=== PATIENT | male | born 1995 | race Caucasian/White ===

== ENCOUNTER → 2020-04-09 09:57 | Outpatient (CLI) | payer OTHER, SELFPAY ==
--- NOTE | 2020-04-09 10:07 | XR_ITS ---
PROCEDURE: XR LUMBAR SPINE MIN 4V CLINICAL INDICATION: LUMBAGO W/ SCIATICA COMPARISON: No exams were available for comparison FINDINGS: There is normal alignment. No fracture or dislocation is evident. No lytic or blastic change. There is decrease in the L5-S1 disc space. There is partial lumbarization of S1. Spina bifida occulta also noted at S1. IMPRESSION: Degenerative disc disease L5-S1 Dictated by: Goran Marino MD 04/09/2020 15:26 Electronically signed by Goran Marino MD in [place] 04/09/2020 15:26
== END ==
PROVIDERS: PCP Family Medicine; Visit Provider Family Medicine
DX: M54.42 Lumbago with sciatica, left side (principal); M54.41 Lumbago with sciatica, right side
CPT/HCPCS: 72110

== ENCOUNTER → 2020-04-16 13:26 | Outpatient (CLI) | payer OTHER, SELFPAY ==
--- NOTE | 2020-04-16 13:36 | MR_ITS ---
PROCEDURE: MR LUMBAR SPINE WO CON CLINICAL INDICATION: DDD AT L5-S1 BACK PAIN XYRS. BILATERAL LEG NUMBNESS. PRIOR X-RAY 04/09/2020 COMPARISON: XR LUMBAR SPINE MIN 4V from 04/09/2020 TECHNIQUE: Standard multiplanar multiecho sequences are performed without contrast. 3-D MIP and myelographic images are also rendered and reviewed FINDINGS: There is normal alignment. There is partial lumbarization of the L5 vertebral body. The spinal cord ends at the T11-T12 level. L1-L2: Mild facet ligamentum hypertrophy. L2-L3: Mild facet ligamentum hypertrophy. L3-L4: Mild facet ligamentum hypertrophy. L4-5: Degenerative disc disease with asymmetric bulging disc eccentric to the right with resultant right lateral recess and foraminal narrowing. The disc does abut the anterior aspect of the right L5 nerve root with moderate to severe right-sided foraminal narrowing. L5-S1: Unremarkable. IMPRESSION: 1. Degenerative disc disease at L4-5 with asymmetric bulging disc eccentric to the right with resultant right lateral recess and foraminal narrowing. The disc does abut the anterior aspect of the right L5 nerve root with moderate to severe right-sided foraminal narrowing. There is minimal anterolisthesis of L4 on L5 of 3 mm 2. 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 Please keep this in mind if there is any intervention contemplated and correlate appropriately Dictated by: Goran Marino MD 04/17/2020 11:48 Electronically signed by Goran Marino MD in [place] 04/17/2020 11:48
== END ==
PROVIDERS: PCP Family Medicine; Visit Provider Family Medicine
DX: M51.36 Other intervertebral disc degeneration, lumbar region (principal)
CPT/HCPCS: 72148; 76376

== ENCOUNTER 2020-06-05 11:00 | Outpatient (RCR) | payer OTHER, SELFPAY | END 2020-06-05 12:00 | disposition home or self-care (01) | LOC: PT 11:00 | PROVIDERS: PCP Family Medicine; Visit Provider Family Medicine | DX: M54.41 Lumbago with sciatica, right side; M51.36 Other intervertebral disc degeneration, lumbar region | CPT/HCPCS: 20561; 97010; 97014; 97033; 97035; 97110; 97140; 97163; 97164; G0283 ==

== ENCOUNTER → 2020-07-14 08:37 | Outpatient (CLI) | payer OTHER, SELFPAY | PROVIDERS: Visit Provider Anesthesiology | DX: Z03.818 Encounter for observation for suspected exposure to other biological agents ruled out (principal) | CPT/HCPCS: U0003 ==

== ENCOUNTER → 2020-12-22 17:29 | Outpatient (CLI) | payer OTHER, SELFPAY | PROVIDERS: Visit Provider Anesthesiology | DX: Z01.818 Encounter for other preprocedural examination (principal); Z20.822 Contact with and (suspected) exposure to COVID-19 | CPT/HCPCS: U0003 ==

== ENCOUNTER 2021-03-16 17:37 | Emergency (ER) | payer OTHER, SELFPAY ==
--- NOTE | 2021-03-16 17:33 | ECG_ITS ---
APPROVED REPORT Exam: Resting ECG HR:101 bpm ECG Measurements Heart Rate 101 AXES DC 160 P 39 QRSd 104 QRS 33 QT 336 T 29 QTc 435 Conclusion Sinus tachycardia Otherwise normal ECG Electronically signed by : Jann Price, 03/17/2021 08:17:34
[2021-03-16 17:37] VITALS: BP 166/103; PULSE 98; RESP 18; TEMP 37.4; O2SAT 100; BMI 45.4
--- NOTE | 2021-03-16 17:39 | XR_ITS ---
PROCEDURE INFORMATION: Exam: XR Chest Exam date and time: 03/16/2021 5:39 PM Age: 25 years old Clinical indication: Chest pressure; Patient HX: Chest pain---. Obesity---. Patient vapes; Additional info: Chest fluttering TECHNIQUE: Imaging protocol: XR of the chest. Views: 2 views. COMPARISON: No relevant prior studies available. FINDINGS: Lungs: Unremarkable. No consolidation. Pleural spaces: Unremarkable. No pleural effusion. No pneumothorax. Heart/Mediastinum: Unremarkable. No cardiomegaly. Bones/joints: Unremarkable. IMPRESSION: No acute findings.
[2021-03-16 18:11] LABS: Basophils # 0.1 K/mm3 (0-0.2); Basophils % 1.1 % (0.1-2.0); Eosinophils # 0.2 K/mm3 (0.0-0.4); Eosinophils % 1.5 % (0.1-12.0); Hemoglobin 15.4 g/dL (14.1-18.0); Lymphocytes # 3.1 K/mm3 (0.7-4.5); Lymphocytes % 28.4 % (10-50); Mean Corpuscular Hemoglobin 28.9 pg (27.0-31.2); Mean Corpuscular Volume 82.7 fl (80-94); Mean Platelet Volume 7.8 fl (7.4-10.4); Monocytes # 0.5 K/mm3 (0.1-1.0); Monocytes % 4.6 % (1.7-9.3); Neutrophils % 64.4 % (37.0-80.0); Platelet Count 210 K/mm3 (142-424); Red Blood Count 5.32 M/mm3 (4.60-6.20); Red Cell Distribution Width 13.9 % (11.5-17.5); White Blood Count 10.8 K/mm3 (4.8-10.8)
[2021-03-16 18:30] LABS: Anion Gap 9.5 mEq/L (5-15); Blood Urea Nitrogen 14 mg/dl (9-20); Calcium 8.9 mg/dl (8.4-10.2); Carbon Dioxide 29 mmol/L (22.0-30.0); Chloride 103 mmol/L (98-107); Creatinine Clearance Estimated 176 mL/min (50-200); Estimated Glomerular Filt Rate 136 ml/min (>60); GFR (African American) 165 ML/MIN (>60); Glucose 91 mg/dl (74-100); Potassium 4.5 mmoL/L (3.5-5.1); Sodium 137 mmol/L (136-145)
--- NOTE | 2021-03-16 18:42 | HMH.EDCP ---
ED Disposition Clinical Impression: Nonspecific chest pain Disposition: Home, Self-Care Condition on Discharge: Good Instructions: DI for Palpitations Referrals: Isrrael Musa MD [Primary Care Provider] - Anthony Dial MD [Staff Physician] - - Critical Care Critical Care Time: No Attestation: On 03/16/21, the high probability of a clinically significant, sudden or life threatening deterioration of the following system(s) required my full and direct attention, intervention and personal management. The time I documented below is in addition to time spent performing reported procedures but includes the following listed in this critical care notation. Medical Decision Making - Medical Records Medical records reviewed: Yes: I reviewed the patient's medical records. - Ray Inquiry Pt receiving controlled substance: No Vital Signs: 03/16/21 17:37 Temperature 99.4 F Temperature Source Oral Pulse Rate [Left Radial] 98 H Respiratory Rate 18 Blood Pressure [Right Arm] 166/103 H Blood Pressure Mean [Right Arm] 124 Blood Pressure Source [Right Arm] Automatic Cuff Blood Pressure Position [Right Arm] Sitting 02 Sat by Pulse Oximetry 100 Oxygen Delivery Method Room Air - Lab Data Lab Results 03/16/21 18:03: WBC 10.8, RBC 5.32, Hgb 15.4, Hct 44.0, MCV 82.7, MCH 28.9, MCHC 35.0, RDW 13.9, Plt Count 210, MPV 7.8, Neut % (Auto) 64.4, Lymph % (Auto) 28.4, [place] % (Auto) 4.6, Eos % (Auto) 1.5, Baso % (Auto) 1.1, Neut # (Auto) 7.0, Lymph # (Auto) 3.1, [place] # (Auto) 0.5, Eos # (Auto) 0.2, Baso # (Auto) 0.1 03/16/21 18:03: Sodium 137, Potassium 4.5, Chloride 103, Carbon Dioxide 29, Anion Gap 9.5, BUN 14, Creatinine 0.70, Estimated Creat Clear 176, Estimated GFR 136, Est GFR ( Amer) 165, Glucose 91, Calcium 8.9, Troponin I < 0.01 Result diagrams: 03/16/21 18:03 03/16/21 18:03 Orders (Tests/Meds): ED MEDICATIONS Generic Name Dose Route Start Last Admin Trade Name Freq PRN Reason Stop Dose Admin Sodium Chloride 1,000 mls @ 999 mls/hr 03/16/21 18:00 03/16/21 18:07 Sod Chlor 0.9% 1000ml Bag IV 03/16/21 19:00 999 mls/hr .Q1H1M LEE ANN Administration Discontinued Medications Generic Name Dose Route Start Last Admin Trade Name [place] PRN Reason Stop Dose Admin Ketorolac Tromethamine 30 mg 03/16/21 17:55 03/16/21 18:07 Ketorolac 30mg/Ml Vial IV 03/16/21 17:56 30 mg ONCE ONE Administration ORDERS Category Date Time Status Troponin I Q3H Lab 03/16/21 20:45 Ordered Troponin I Q3H Lab 03/16/21 23:45 Ordered - Radiology Data #1 Image(s): Chest Image Reviewed: Yes I reviewed the patient's radiology results, Yes I reviewed the patient's radiology image Preliminary Findings: Normal/NAD, No Fracture Seen - ECG Data Tracing #1 Tachycardic rate of 101 bpm, NV interval 160 ms, normal QTC. Sinus tachycardia with no ST changes. ECG initial impression date: 03/16/21 ECG initial impression time: 17:33 - Reevaluation(s) Time: 19:07 Reevaluation #1: On reevaluation, patient is pain-free. He is remained hemodynamically stable. No evidence of dysrhythmia. Patient will be given cardiology follow-up. If he continues to have symptoms I do believe he will benefit from Holter monitor. Patient given strict return precautions. Verbalized understanding. - MAINOR Score for Non-Stemi Age of Patient: <30 years old Heart Rate: 90-109 bpm Systolic Blood Pressure: 160-199 mmHg Serum Creatinine: <0.40 mg/dl CHF [place] Class: I-No CHF Other Risk Factors: None Non-Stemi Risk Score: 26 Risk Stratification: 1-108 = Low Risk Medical Decision Narrative: 25-year-old male presented to the emergency department with some chest discomfort for the last 4 days. Symptoms describing are atypical for ACS. Patient is relatively low risk based on heart score. Work-up initiated. Chest Pain HPI - General Chief Complaint: Chest Pain Stated Complaint: Chest tightness Time Seen by Provider
[2021-03-16 18:48] LABS: Troponin I < 0.01 ng/ml (0.00-0.034)
[2021-03-16 19:42] VITALS: BP 142/84; PULSE 92; RESP 16; TEMP 37.6; O2SAT 100
== END 2021-03-16 19:30 | disposition home or self-care (01) ==
PROVIDERS: Emergency Provider Emergency Medicine; PCP Family Medicine
DX: R07.89 Other chest pain (principal)
CPT/HCPCS: 71046; 80048; 84484; 85025; 93005; 96365; 96375; 99282

== ENCOUNTER 2021-07-05 15:24 | Emergency (ER) | payer OTHER, SELFPAY ==
[2021-07-05 16:00] VITALS: BP 149/96; PULSE 91; RESP 19; TEMP 37.1; O2SAT 98; BMI 43.4
--- NOTE | 2021-07-05 16:37 | HMH.EDUTC ---
[facility] [place] Clinical Impression: URI (upper respiratory infection) Qualifiers: URI type: unspecified URI Qualified Code(s): J06.9 - Acute upper respiratory infection, unspecified Disposition: Home, Self-Care Condition on Discharge: Good Instructions: Sore Throat, DI for Nasal Congestion, DI for COVID-19 (Suspected or Confirmed ), Preventing the Spread of Coronavirus Discharge Instructions Additional Instructions: *Monitor Temp, Over the counter Motrin or Tylenol as directed/as needed Tylenol every 4 hours and Motrin every 6 hours (as long as your family doctor has told you that you can take it) for fever or pain. and straight to ER if unable to lower temp less than 101.0 after medication given *Warm salt water gargles may help to soothe the throat *Throat Lozenges *Warm fluids like tea with honey may help to soothe the throat *Sleep elevated *Humidifier/Vaporizer Your throat swab was sent for culture. Those results are typically sent to your primary care. Be sure to follow up in 2-3 days with your family doctor/primary care physician if no improvement so they can review those result and treat if necessary. If you don?t have a primary care doctor, I recommend you get one but in the mean time, you will have to return to a walk in clinic Follow up IMMEDIATELY for new or worsening symptoms or no Noticeable improvement over the next 48-72 hours. 911 for difficulty breathing or swallowing You were tested for today for COVID19 your test result should be back in the next 24-48 hours, you was given Handout to [facility] portal to check your results if you have issues logging on you may call the [facility] for your Results You was given a handout with instructions for Self Quarantine and Self isolation for while you wait on test results and what to do if they are positive If you are positive the Health Dept will be contacting you also Make sure to take your Vitamins Vit. C Vit D and Zinc if you can take them Referrals: Isrrael Musa MD [Primary Care Provider] - As needed Forms: Work/School Release Time of Disposition: 16:44 Medical Decision Making - Ray Inquiry Pt receiving controlled substance: No Ray was queried for this patient: No Vital Signs: 07/05/21 16:00 Temperature 98.8 F Temperature Source Oral Pulse Rate [Right Brachial] 91 H Respiratory Rate 19 Blood Pressure [Right Arm] 149/96 H Blood Pressure Mean [Right Arm] 113 Blood Pressure Source [Right Arm] Automatic Cuff Blood Pressure Position [Right Arm] Sitting 02 Sat by Pulse Oximetry 98 Oxygen Delivery Method Room Air - Lab Data Lab results reviewed: Yes: I reviewed the patient's lab results. Lab Results 07/05/21 16:05: Strep Scn Rapid Clinic Negative Orders (Tests/Meds): ORDERS Category Date Time Status Covid-19 Nasal PCR ([facility]) Routine Lab 07/05/21 16:10 Received Strep Screen Confirmation Stat Micro 07/05/21 16:05 Received [facility] UTC HPI - General Stated complaint: covid test,sore throat,cough<ZAMORA,long,msucle aimee Time Seen by Provider: 07/05/21 16:37 Mode of Arrival: Ambulatory Source of Information: Patient Limitations: No Limitations Description of Symptoms (Recalled from Triage Doc. by RN): PATIENT C/O SORE THROAT, COUGH, CONGESTION AND HEADACHE X 3 DAYS HEENT Symptoms (Recalled from RN notes): Yes Resp Symptoms (Recalled from RN notes): Yes Skin Symptoms (Recalled from RN notes): No MS Symptoms (Recalled from RN notes): No Functional Status (Recalled from RN notes): WNL - History of Present Illness Provider Complaint: Patient states that he has not felt well the last few days States that he has been having sore throat body aches, chills, nasal congestion and headache State that he was around someone at work that was positive for COVID States that today he was still feeling bad so he came in to get tested for strep and COVID - Related Data Home Medications Medication Instructions Recorded Confirmed Diclofenac Sodium [Diclofena
[2021-07-05 16:40] VITALS: BP 149/96; PULSE 91; RESP 19; TEMP 37.1; O2SAT 98
[2021-07-05 16:43] LABS: UTC Strep Screen (Rapid) Negative (Negative)
== END 2021-07-05 16:45 | disposition home or self-care (01) ==
PROVIDERS: Emergency Provider Nurse Practitioner; PCP Family Medicine
DX: J06.9 Acute upper respiratory infection, unspecified (principal); Z20.822 Contact with and (suspected) exposure to COVID-19
CPT/HCPCS: 87880; 99203; C9803; G0463; U0003; U0005

== ENCOUNTER → 2021-09-02 11:09 | Outpatient (CLI) | payer OTHER, SELFPAY | PROVIDERS: PCP Family Medicine; Visit Provider Family Medicine | DX: G47.30 Sleep apnea, unspecified (principal); R40.0 Somnolence; R06.83 Snoring; E66.9 Obesity, unspecified | CPT/HCPCS: 95806 ==

== ENCOUNTER 2021-10-08 18:15 | Emergency (ER) | payer OTHER, SELFPAY ==
[2021-10-08 18:15] VITALS: BP 163/98; PULSE 106; RESP 19; O2SAT 96; BMI 40.6
[2021-10-08 18:16] VITALS: BMI 40.6
--- NOTE | 2021-10-08 18:16 | XR_ITS ---
PROCEDURE INFORMATION: Exam: XR Chest Exam date and time: 10/08/2021 6:16 PM Age: 25 years old Clinical indication: Pain; Chest pressure; Additional info: Chest pain TECHNIQUE: Imaging protocol: XR of the chest. Views: 2 views. COMPARISON: CR XR CHEST 2V 03/16/2021 5:56 PM FINDINGS: Lungs: Unremarkable. No consolidation. Pleural spaces: Unremarkable. No pleural effusion. No pneumothorax. Heart/Mediastinum: Unremarkable. No cardiomegaly. Bones/joints: Unremarkable. IMPRESSION: No acute findings.
--- NOTE | 2021-10-08 18:16 | ECG_ITS ---
APPROVED REPORT Exam: Resting ECG HR:102 bpm ECG Measurements Heart Rate 102 AXES FL 162 P 32 QRSd 104 QRS 14 QT 340 T 9 QTc 443 Conclusion Sinus tachycardia Cannot rule out Anterior infarct, age undetermined Abnormal ECG Electronically signed by : Jann Price MD 10/09/2021 14:25:54
--- NOTE | 2021-10-08 18:25 | PC.NURSE ---
Pt is going to chest xray
[2021-10-08 18:36] LABS: Chloride 98 mmol/L (98-107); Potassium 3.8 mmoL/L (3.5-5.1); Sodium 135 mmol/L (136-145)
[2021-10-08 18:39] LABS: Alanine Aminotransferase 47 U/L (12-78); Albumin Level 4.5 g/dl (3.5-5.0); Albumin/Globulin Ratio 1.3 (1.1-1.8); Alkaline Phosphatase 40 U/L (38-126); Anion Gap 11.8 mEq/L (5-15); Aspartate Amino Transferase 39 U/L (17-59); Bilirubin,Total 0.5 mg/dl (0.2-1.3); Blood Urea Nitrogen 15 mg/dl (9-20); Carbon Dioxide 29 mmol/L (22.0-30.0); Creatinine Clearance Estimated 308 mL/min (50-200); Estimated Glomerular Filt Rate 136 ml/min (>60); GFR (African American) 165 ML/MIN (>60); Globulin 3.5 g/dL (1.3-3.2)
[2021-10-08 18:40] LABS: Calcium 9.3 mg/dl (8.4-10.2); Glucose 130 mg/dl (74-100)
[2021-10-08 18:41] LABS: Basophils # 0.3 K/mm3 (0-0.2); Basophils % 2.1 % (0.1-2.0); Eosinophils # 0.2 K/mm3 (0.0-0.4); Eosinophils % 1.7 % (0.1-12.0); Hematocrit 48.1 % (42.0-52.0); Hemoglobin 15.6 g/dL (14.1-18.0); Mean Corpuscular HGB Conc 32.4 g/dL (31.8-35.4); Mean Corpuscular Hemoglobin 27.5 pg (27.0-31.2); Mean Platelet Volume 8.3 fl (7.4-10.4); Monocytes # 0.6 K/mm3 (0.1-1.0); Monocytes % 4.9 % (1.7-9.3); Neutrophils # 7.9 K/mm3 (1.8-7.8); Neutrophils % 66.5 % (37.0-80.0); Platelet Count 268 K/mm3 (142-424); Red Blood Count 5.65 M/mm3 (4.60-6.20); Red Cell Distribution Width 14.6 % (11.5-17.5); White Blood Count 11.9 K/mm3 (4.8-10.8)
[2021-10-08 18:51] LABS: Troponin I < 0.01 ng/ml (0.00-0.034)
--- NOTE | 2021-10-08 19:04 | HMH.EDCP ---
ED Disposition Clinical Impression: Chest pain Qualifiers: Chest pain type: other chest pain Qualified Code(s): R07.89 - Other chest pain Hypertension Qualifiers: Hypertension type: primary hypertension Qualified Code(s): I10 - Essential (primary) hypertension Disposition: Home, Self-Care Condition on Discharge: Good Instructions: DI for Atypical Chest Pain Prescriptions: Famotidine [Pepcid 20mg Tablet] 20 mg PO DAILY #15 tab Transmission Status: Pending to [facility] Referrals: Jann Craig MD [Primary Care Provider] - - Critical Care Critical Care Time: No Attestation: On 10/08/21, the high probability of a clinically significant, sudden or life threatening deterioration of the following system(s) required my full and direct attention, intervention and personal management. The time I documented below is in addition to time spent performing reported procedures but includes the following listed in this critical care notation. Medical Decision Making - Medical Records Medical records reviewed: Yes: I reviewed the patient's medical records. - Ray Inquiry Pt receiving controlled substance: No Vital Signs: 10/08/21 18:15 Pulse Rate [Right Radial] 106 H Respiratory Rate 19 Blood Pressure [Right Arm] 163/98 H Blood Pressure Mean [Right Arm] 119 Blood Pressure Source [Right Arm] Automatic Cuff Blood Pressure Position [Right Arm] Supine 02 Sat by Pulse Oximetry 96 Oxygen Delivery Method Room Air - Lab Data Lab Results 10/08/21 18:20: WBC 11.9 H, RBC 5.65, Hgb 15.6, Hct 48.1, MCV 85.0, MCH 27.5, MCHC 32.4, RDW 14.6, Plt Count 268, MPV 8.3, Neut % (Auto) 66.5, Lymph % (Auto) 25.0, [place] % (Auto) 4.9, Eos % (Auto) 1.7, Baso % (Auto) 2.1 H, Neut # (Auto) 7.9 H, Lymph # (Auto) 3.0, [place] # (Auto) 0.6, Eos # (Auto) 0.2, Baso # (Auto) 0.3 H 10/08/21 18:20: Sodium 135 L, Potassium 3.8, Chloride 98, Carbon Dioxide 29, Anion Gap 11.8, BUN 15, Creatinine 0.70, Estimated Creat Clear 308 H, Estimated GFR 136, Est GFR ( Amer) 165, Glucose 130 H, Calcium 9.3, Total Bilirubin 0.5, AST 39, ALT 47, Alkaline Phosphatase 40, Troponin I < 0.01, Total Protein 8.0, Albumin 4.5, Globulin 3.5 H, Albumin/Globulin Ratio 1.3 Result diagrams: 10/08/21 18:20 10/08/21 18:20 Orders (Tests/Meds): ED MEDICATIONS Generic Name Dose Route Start Last Admin Trade Name Freq PRN Reason Stop Dose Admin Sodium Chloride 8 ml 10/08/21 19:04 Sodium Chloride 0.9% 10ml Vial IV 11/07/21 19:03 NEEDED PRN dilute pepcid Discontinued Medications Generic Name Dose Route Start Last Admin Trade Name Freq PRN Reason Stop Dose Admin Aspirin 324 mg 10/08/21 18:17 10/08/21 18:19 Aspirin 81mg Chewable Tablet PO 10/08/21 18:18 324 mg ONCE ONE Administration Belladonna Alkaloids 60 ml 10/08/21 19:04 10/08/21 19:13 Gi Cocktail 60ml Udc PO 10/08/21 19:05 60 ml ONCE ONE Administration Famotidine 20 mg 10/08/21 19:04 10/08/21 19:13 Famotidine 20mg/2ml Vial IV 10/08/21 19:05 20 mg ONCE ONE Administration Hydralazine HCl 10 mg 10/08/21 19:08 10/08/21 19:15 Hydralazine 20mg/Ml Vial IV 10/08/21 19:09 10 mg ONCE ONE Administration ORDERS Category Date Time Status Troponin I Q3H Lab 10/08/21 21:30 Ordered Troponin I Q3H Lab 10/09/21 00:30 Ordered - Radiology Data #1 Image(s): Chest Image Reviewed: Yes I reviewed the patient's radiology results, Yes I reviewed the patient's radiology image, Yes I have reviewed radiologist's interpretation Preliminary Findings: Normal/NAD - ECG Data Tracing #1 I reviewed this ECG and interpreted as documented below: Tachycardic rate of 102 bpm, normal IA interval, normal QTC. Sinus tachycardia with nonspecific changes. ECG initial impression date: 10/08/21 ECG initial impression time: 18:16 - Reevaluation(s) Time: 19:28 Reevaluation #1: On reevaluation, the patient is feeling much better. Pain is i
[2021-10-08 19:36] VITALS: BP 156/82; PULSE 102; RESP 18; TEMP 36.8; O2SAT 98
== END 2021-10-08 19:41 | disposition home or self-care (01) ==
PROVIDERS: Emergency Provider Emergency Medicine; PCP Family Medicine
DX: R07.89 Other chest pain (principal); I10 Essential (primary) hypertension; F41.8 Other specified anxiety disorders
CPT/HCPCS: 71046; 80053; 84484; 85025; 93005; 96374; 96375; 99283

== ENCOUNTER → 2021-11-21 09:13 | Outpatient (CLI) | payer BC, OTHER, SELFPAY | PROVIDERS: Visit Provider Nurse Practitioner Family | DX: Z01.812 Encounter for preprocedural laboratory examination (principal); Z11.52 Encounter for screening for COVID-19; G47.33 Obstructive sleep apnea (adult) (pediatric) | CPT/HCPCS: C9803; U0003; U0005 ==

== ENCOUNTER → 2021-11-23 20:08 | Outpatient (CLI) | payer BC, OTHER, SELFPAY | PROVIDERS: PCP Family Medicine; Visit Provider Nurse Practitioner Family | DX: G47.33 Obstructive sleep apnea (adult) (pediatric) (principal) | CPT/HCPCS: 95810 ==

== ENCOUNTER 2022-01-23 09:12 | Emergency (ER) | payer BC, OTHER, SELFPAY ==
[2022-01-23 09:25] VITALS: BP 152/104; PULSE 101; RESP 20; TEMP 36.7; O2SAT 96; BMI 49.1
--- NOTE | 2022-01-23 10:16 | HMH.EDUTC ---
[facility] [place] Clinical Impression: Fish hook injury of right index finger Qualifiers: Encounter type: initial encounter Qualified Code(s): S69.91XA - Unspecified injury of right wrist, hand and finger(s), initial encounter Disposition: Home, Self-Care Condition on Discharge: Good Instructions: DI for Puncture Wound Additional Instructions: Keep the wound clean and dry. Follow up with your regular doctor. Take the antibiotics as directed and apply the topical antibiotics as directed. Watch the puncture wounds for signs of worsening infection, such as worsening redness, drainage, swelling, etc. GO TO THE ER FOR ANY WORSENING SYMPTOMS Prescriptions: Mupirocin [Bactroban 2% Ointment 22gm tube] 1 applicatio TP TID 7 Days #1 gm Transmission Status: Received by [facility] cephALEXin [cephALEXin 500mg capsule] 500 mg PO Q6H 10 Days #40 cap Transmission Status: Received by [facility] Referrals: Jann Craig MD [Primary Care Provider] - Time of Disposition: 10:19 Medical Decision Making - Medical Records Medical records reviewed: No: I reviewed the patient's medical records. - Ray Inquiry Pt receiving controlled substance: No Vital Signs: 01/23/22 09:25 01/23/22 10:23 Temperature 98.0 F 98 F Temperature Source Oral Pulse Rate 101 H Pulse Rate [Left Radial] 101 H Respiratory Rate 20 20 Blood Pressure 150/98 H Blood Pressure [Right Arm] 152/104 H Blood Pressure Mean [Right Arm] 120 02 Sat by Pulse Oximetry 96 Orders (Tests/Meds): ED MEDICATIONS Discontinued Medications Generic Name Dose Route Start Last Admin Trade Name Freq PRN Reason Stop Dose Admin Ibuprofen 800 mg 01/23/22 10:20 01/23/22 10:25 Ibuprofen 400 Mg Tablet PO 01/23/22 10:21 800 mg ONCE ONE Administration Lidocaine HCl 0 ml 01/23/22 09:26 01/23/22 09:40 Lidocaine 1% Pf 2ml Ampule SQ 01/23/22 09:27 2 ml ONCE ONE Administration [facility] [place] - General Stated complaint: 01/23 F/O rt index finger Time Seen by Provider: 01/23/22 09:25 Mode of Arrival: Ambulatory Source of Information: Patient Limitations: No Limitations Description of Symptoms (Recalled from Triage Doc. by RN): fish hook in right index finger hand. happened this am. 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 His tdap is up to date. - Related Data Home Medications Medication Instructions Recorded Confirmed Duloxetine HCl [Cymbalta] 60 mg PO DAILY 07/05/21 12/29/21 hydrochlorothiazide 25 mg tablet 25 mg PO DAILY 09/30/21 12/29/21 lisinopril 10 mg tablet 10 mg PO DAILY 09/30/21 12/29/21 Previous Rx's Medication Instructions Recorded paroxetine HCl 20 mg tablet 20 mg PO DAILY #30 tab 01/19/22 quetiapine 50 mg tablet See Rx Instructions PO QHS #45 tab 01/19/22 Mupirocin [Bactroban 2% Ointment 1 applicatio TP TID 7 Days #1 gm 01/23/22 22gm tube] cephALEXin [cephALEXin 500mg 500 mg PO Q6H 10 Days #40 cap 01/23/22 capsule] Allergies Allergy/AdvReac Type Severity Reaction Status Date / Time No Known Allergies Allergy Verified 01/19/22 08:35 - Worker's Comp Is this a Worker's Comp case?: No Is this an H Worker's Comp?: No Is this a Alvaro Worker's Comp?: No [facility] History - Hepatitis A Screen Drug use history?: No High risk sexual behaviors?: No History of sexually transmitted infection?: No Currently employed?: No Childcare worker?: No Do you have indoor plumbing?: Yes Do you have electricity?: Yes Attestation statement:: This patient has been screened for Hepatitis A risk factors. I have reviewed the patient's past me
[2022-01-23 10:23] VITALS: BP 150/98; PULSE 101; RESP 20; TEMP 36.6
== END 2022-01-23 10:25 | disposition home or self-care (01) ==
PROVIDERS: Emergency Provider Nurse Practitioner Family; PCP Family Medicine
DX: S60.450A Superficial foreign body of right index finger, initial encounter (principal); I10 Essential (primary) hypertension; F32.A Depression, unspecified; F41.9 Anxiety disorder, unspecified; Z79.899 Other long term (current) drug therapy; Z87.891 Personal history of nicotine dependence; W45.8XXA Other foreign body or object entering through skin, initial encounter
CPT/HCPCS: 10120; 96372; 99213; G0463

== ENCOUNTER 2022-02-16 11:36 | Emergency (ER) | payer BC, OTHER, SELFPAY ==
[2022-02-16 11:49] VITALS: BP 132/86; PULSE 116; RESP 20; TEMP 39.3; O2SAT 98; BMI 47.5
[2022-02-16 12:00] LABS: UTC Influenza A Antigen Negative (Negative); UTC Influenza B Antigen Negative (Negative)
--- NOTE | 2022-02-16 12:09 | HMH.EDUTC ---
[facility] – [place] Disposition Clinical Impression: Viral syndrome Disposition: Home, Self-Care Condition on Discharge: Good Instructions: DI for Viral Syndrome Additional Instructions: Drink plenty of fluids. Take tylenol or ibuprofen for pain or fever. Take the medications as directed. Follow up with your regular doctor. GO TO THE ER FOR ANY WORSENING SYMPTOMS Prescriptions: Ondansetron [Zofran 4mg ODT] 4 mg PO Q8HP PRN #20 tab PRN Reason: Nausea Transmission Status: Pending to [facility] Benzonatate [Benzonatate 100mg cap] 100 mg PO TIDP PRN #30 cap PRN Reason: Cough Transmission Status: Pending to [facility] Azithromycin [Z-Thierno 250mg Tab*] 250 mg PO UD DOSE PK #6 tab Transmission Status: [facility] to [facility] Referrals: Provider,Referral, MD [Primary Care Provider] - Forms: Work/School Release Time of Disposition: 13:30 Medical Decision Making - Medical Records Medical records reviewed: No: I reviewed the patient's medical records. - Ray Inquiry Pt receiving controlled substance: No Vital Signs: 02/16/22 11:49 02/16/22 13:24 Temperature 102.8 F H 100.9 F H Temperature Source Oral Pulse Rate 95 H Pulse Rate [Left Radial] 116 H Respiratory Rate 20 20 Blood Pressure 132/86 Blood Pressure [Right Arm] 132/86 Blood Pressure Mean [Right Arm] 101 02 Sat by Pulse Oximetry 98 - Lab Data Lab results reviewed: Yes: I reviewed the patient's lab results. Lab Results 02/16/22 11:53: Influenza Type A Ag Negative, Influenza Type B Ag Negative 02/16/22 12:58: Group A Strep Rapid Negative Orders (Tests/Meds): ED MEDICATIONS Discontinued Medications Generic Name Dose Route Start Last Admin Trade Name Freq PRN Reason Stop Dose Admin Acetaminophen 650 mg 02/16/22 12:02 02/16/22 12:08 Acetaminophen 325mg Tab PO 02/16/22 12:03 650 mg ONCE ONE Administration ORDERS Category Date Time Status Full Resp Panel w/COVID ([facility]) Routine Lab 02/16/22 13:01 Ordered Strep Screen Confirmation Stat Micro 02/16/22 12:58 Received [facility] [place] HPI - General Stated complaint: Small, fever, chills Time Seen by Provider: 02/16/22 12:09 Mode of Arrival: Ambulatory Source of Information: Patient Limitations: No Limitations Description of Symptoms (Recalled from Triage Doc. by RN): pt here with c/o fever headache and chills that began last night HEENT Symptoms (Recalled from RN notes): Yes Resp Symptoms (Recalled from RN notes): Yes Skin Symptoms (Recalled from RN notes): No MS Symptoms (Recalled from RN notes): No Functional Status (Recalled from RN notes): wnl - History of Present Illness Provider Complaint: He states that for the past 2 days he has had a head ache, low grade fever, and chills. He denies shortness of breath but he does have a cough. - Related Data Home Medications Medication Instructions Recorded Confirmed Duloxetine HCl [Cymbalta] 60 mg PO DAILY 07/05/21 12/29/21 hydrochlorothiazide 25 mg tablet 25 mg PO DAILY 09/30/21 12/29/21 lisinopril 10 mg tablet 10 mg PO DAILY 09/30/21 12/29/21 Previous Rx's Medication Instructions Recorded paroxetine HCl 20 mg tablet 20 mg PO DAILY #30 tab 01/19/22 quetiapine 50 mg tablet See Rx Instructions PO QHS #45 tab 01/19/22 Mupirocin [Bactroban 2% Ointment 1 applicatio TP TID 7 Days #1 gm 01/23/22 22gm tube] cephALEXin [cephALEXin 500mg 500 mg PO Q6H 10 Days #40 cap 01/23/22 capsule] Azithromycin [Z-Thierno 250mg Tab*] 250 mg PO UD DOSE PK #6 tab 02/16/22 Benzonatate [Benzonatate 100mg 100 mg PO TIDP PRN #30 cap 02/16/22 cap] Ondansetron [Zofran 4mg ODT] 4 mg PO Q8HP PRN #20 tab 02/16/22 Allergies Allergy/AdvReac Type Severity Reaction Status Date / Time No Known Allergies Allergy Verified 02/16/22 12:01 - Worker's Comp Is this a Worker's Comp case?: No [facility] History - Hepatitis A Screen Attestation statement:: This patient has been screened
[2022-02-16 13:11] LABS: Adenovirus,PCR Not Detected (NotDetected); Bordetella Pertussis Not Detected (NotDetected); Chlamydophila Pneumoniae, PCR Not Detected (NotDetected); Coronavirus 19, PCR Not Detected (NotDetected); Coronavirus 229E Not Detected (NotDetected); Coronavirus NL63 Not Detected (NotDetected); Coronavirus OC43 Not Detected (NotDetected); Coronovirus HKU1,PCR Not Detected (NotDetected); Human Metapneumovirus Not Detected (NotDetected); Influenza A, PCR Not Detected (NotDetected); Influenza AH1, 2009 Not Detected (NotDetected); Influenza AH1, PCR Not Detected (NotDetected); Influenza AH3,PCR Not Detected (NotDetected); Influenza B, PCR Not Detected (NotDetected); Mycoplasma Pneumoniae, PCR Not Detected (NotDetected); Parainfluenza 1, PCR Not Detected (NotDetected); Parainfluenza 2, PCR Not Detected (NotDetected); Parainfluenza 3, PCR Not Detected (NotDetected); Parainfluenza 4, PCR Not Detected (NotDetected); Respiratory Syncytial Virus Not Detected (NotDetected); Rhinovirus/Enterovirus Not Detected (NotDetected)
[2022-02-16 13:22] LABS: Strep Scrn Group A (Rapid) Negative (Negative)
[2022-02-16 13:24] VITALS: BP 132/86; PULSE 95; RESP 20; TEMP 38.3
== END 2022-02-16 13:24 | disposition home or self-care (01) ==
PROVIDERS: Emergency Provider Nurse Practitioner Family
DX: B34.9 Viral infection, unspecified (principal)
CPT/HCPCS: 87430; 87581; 87632; 87798; 87804; 99212; C9803; G0463; U0003; U0005

== ENCOUNTER 2022-05-06 17:00 | Emergency (ER) | payer BC, OTHER, SELFPAY ==
--- NOTE | 2022-05-06 17:37 | XR_ITS ---
PROCEDURE INFORMATION: Exam: XR Left Foot Exam date and time: 05/06/2022 5:42 PM Age: 26 years old Clinical indication: Patient HX: Obese male patient with left foot pain since last night. No known injury. TECHNIQUE: Imaging protocol: Radiologic exam of the Left foot. Views: 3 or more views. COMPARISON: LEAJW/OLT MRI-LOW EXT ANY JOINT W/O-LT 02/17/2016 7:53 AM FINDINGS: Bones/joints: Chronic appearing deformity of the body of the talus which is foreshortened with prominent anterior spurring. Deformity of the navicular bone which also appears narrowed, sclerotic with irregular contours. Milder arthritic changes at the calcaneal-cuboid joint, navicular-cuneiform joints and in the 2nd tarsal-metatarsal joint. Findings could be the sequela of old healed trauma earlier in life, or repetitive micro trauma such as neuropathic arthropathy. 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 No definite acute appearing fracture or dislocation. Lateral view shows possible pes planus/ flattening of the longitudinal arch of the foot, not accurately evaluated without weight-bearing. Soft tissues: Soft tissue swelling.No radiopaque foreign bodies seen. No soft tissue emphysema. IMPRESSION: 1. Chronic bony deformities and arthritic changes in the midfoot and hindfoot as detailed above, which could be the sequela of old healed trauma, or repetitive micro trauma such as neuropathic arthropathy. 2. Likely pes planus, not accurately evaluated without weight-bearing views. 3. No definite acute fracture. No dislocation.
[2022-05-06 17:43] VITALS: BP 136/84; PULSE 94; RESP 16; TEMP 37; O2SAT 97; BMI 46.7
--- NOTE | 2022-05-06 17:52 | HMH.EDUTC ---
[facility] [place] Disposition Clinical Impression: Left foot pain, Tendinitis of left foot Disposition: Home, Self-Care Condition on Discharge: Good Instructions: Metatarsalgia, DI for Metatarsalgia, DI for Foot Pain Additional Instructions: Rest the extremity, Elevate the extremity as tolerated while you are resting. Follow up with Dr. Skinner (podiatry). Sometimes there can be fractures or soft tissue injuries that don't show up well on the first set of x-rays. I put in a referral but you need to call her office and schedule an appointment. Follow up with your regular doctor. GO TO THE ER FOR ANY WORSENING SYMPTOMS Prescriptions: Clotrimazole 1 applic TP BID 14 Days #28 gm Transmission Status: Received by [id number] methylPREDNISolone [Medrol] 4 mg PO DIRECTED 6 Days #21 packet Transmission Status: Received by [id number] Referrals: Enma Lawton APRN [Primary Care Provider] - Louisa Skinner DPM [Staff Physician] - Forms: Work/School Release Time of Disposition: 18:35 Medical Decision Making - Medical Records Medical records reviewed: No: I reviewed the patient's medical records. - Ray Inquiry Pt receiving controlled substance: No Vital Signs: 05/06/22 17:43 05/06/22 18:36 Temperature 98.6 F 98.6 F Temperature Source Oral Pulse Rate 94 H Pulse Rate [Left] 94 H Respiratory Rate 16 16 Blood Pressure 136/84 Blood Pressure [Right Arm] 136/84 Blood Pressure Mean [Right Arm] 101 02 Sat by Pulse Oximetry 97 - Radiology Data #1 Image(s): Foot/Toes Image Reviewed: Yes I reviewed the patient's radiology image Preliminary Findings: Abnormal, No Fracture Seen PROCEDURE INFORMATION: Exam: XR Left Foot Exam date and time: 05/06/2022 5:42 PM Age: 26 years old Clinical indication: Patient HX: Obese male patient with left foot pain since last night. No known injury. TECHNIQUE: Imaging protocol: Radiologic exam of the Left foot. Views: 3 or more views. COMPARISON: LEAJW/OLT MRI-LOW EXT ANY JOINT W/O-LT 02/17/2016 7:53 AM FINDINGS: Bones/joints: Chronic appearing deformity of the body of the talus which is foreshortened with prominent anterior spurring. Deformity of the navicular bone which also appears narrowed, sclerotic with irregular contours. Milder arthritic changes at the calcaneal-cuboid joint, navicular-cuneiform joints and in the 2nd tarsal-metatarsal joint. Findings could be the sequela of old healed trauma earlier in life, or repetitive micro trauma such as neuropathic arthropathy. 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 No definite acute appearing fracture or dislocation. Lateral view shows possible pes planus/ flattening of the longitudinal arch of the foot, not accurately evaluated without weight-bearing. Soft tissues: Soft tissue swelling.No radiopaque foreign bodies seen. No soft tissue emphysema. IMPRESSION: 1. Chronic bony deformities and arthritic changes in the midfoot and hindfoot as detailed above, which could be the sequela of old healed trauma, or repetitive micro trauma such as neuropathic arthropathy. 2. Likely pes planus, not accurately evaluated without weight-bearing views. 3. No definite acute fracture. No dislocation. . [facility] [place] HPI - General Stated complaint: PAIN LEFT FOOT Time Seen by Provider: 05/06/22 17:52 Mode of Arrival: Ambulatory Source of Information: Patient Limitations: No Limitations Description of Symptoms (Recalled from Triage Doc. by RN): patient comes in for left foot pain. patient states that he woke up this am and he couldnt put weight on it without pain. HEENT Symptoms (Recalled from RN notes): No Resp Symptoms (Recalled from RN notes): No Skin Symptoms (Recalled from RN notes): No MS Symptoms (Recalled from RN notes): Yes Functional Status (Recall
[2022-05-06 18:36] VITALS: BP 136/84; PULSE 94; RESP 16; TEMP 37
== END 2022-05-06 18:41 | disposition home or self-care (01) ==
PROVIDERS: Emergency Provider Nurse Practitioner Family; PCP Nurse Practitioner Family
DX: M77.8 Other enthesopathies, not elsewhere classified (principal); M79.672 Pain in left foot; Z87.39 Personal history of other diseases of the musculoskeletal system and connective tissue
CPT/HCPCS: 73630; 99212; G0463

== ENCOUNTER 2022-07-19 12:42 | Emergency (ER) | payer OTHER, SELFPAY ==
--- NOTE | 2022-07-19 13:53 | EXP.UTC ---
Discharge Plan Disposition Patient Disposition: Home, Self-Care Condition: Good Prescriptions Prescriptions: New cephalexin 500 mg capsule 500 mg PO QID Qty: 40 0RF No Action lisinopril 10 mg tablet 10 mg PO DAILY hydrochlorothiazide 25 mg tablet 25 mg PO DAILY paroxetine HCl [Paxil] 30 mg tablet 30 mg PO DAILY Qty: 30 1RF quetiapine [Seroquel] 50 mg tablet See Rx Instructions PO QHS Qty: 45 1RF Rx Instructions: take 1.5 tablets (75mg) PO every day at bedtime; clotrimazole 28.4 GM cream 1 applic TP BID 14 Days Qty: 28 2RF duloxetine 60 MG capsule,delayed release(DR/EC) 60 mg PO DAILY Referrals Follow up/Referrals: Enma Lawton APRN [Primary Care Provider] - See instructions Activity Restrictions/Add. Instructions Additional Instructions/Restrictions: Keep the wound clean and dry. Keep a dressing on it if you are going to be getting it dirty. Watch the for signs of infection, such as redness, swelling, drainage, fever. etc. Take tylenol or ibuprofen for pain. Follow up with your regular doctor. Return in 10 days to have the sutures removed. GO TO THE ER FOR ANY WORSENING SYMPTOMS OR CONCERNS. Wear the finger splint for the next 2 days to give the wound time to start healing. 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 He denies any other injury. Related Data Home Medications Medication Instructions Recorded Confirmed duloxetine 60 mg capsule,delayed 60 mg PO DAILY Pain 07/05/21 06/14/22 release hydrochlorothiazide 25 mg tablet 25 mg PO DAILY htn 09/30/21 06/14/22 lisinopril 10 mg tablet 10 mg PO DAILY htn 09/30/21 06/14/22 Previous Rx's Medication Instructions Recorded clotrimazole 1 % topical cream 1 applic topical BID 14 days #28 05/06/22 grams paroxetine HCl 30 mg tablet (Paxil) 30 mg PO DAILY #30 tabs 06/14/22 quetiapine 50 mg tablet (Seroquel) See Rx Instructions PO QHS #45 tabs 06/14/22 cephalexin 500 mg capsule 500 mg PO QID #40 caps 07/19/22 Allergies Allergy/AdvReac Type Severity Reaction Status Date / Time No Known Allergies Allergy Verified 07/19/22 14:08 [facility] Medical History Insomnia Recurrent major depression resistant to treatment Social History Smoking Status: Former smoker alcohol intake: never substance use type: denies use current occupational status: employed Travel in the last 8 weeks: None household members: spouse and children housing: house number of children: 1 ROS Obtained: Yes All systems reviewed & no additional complaints except as documented Constitutional Constitutional: Denies chills and Denies fever(s) Eyes Eyes: Denies eye discharge ENT Ears, Nose, Mouth, and Throat: Denies dizziness, Denies otalgia and Denies sore throat Cardiovascular Cardiovascular: Denies chest pain Respiratory Respiratory: Denies shortness of breath, Denies chest congestion, Denies cough, Denies stridor and Denies wheezing Gastrointestinal Gastrointestingal: Denies nausea or vomiting Musculoskeletal Musculoskeletal: Reports system reviewed and no additional complaints, except as documented and Denies arthralgias Integumentary/Breasts Skin/Breast: Reports as per HPI Neurologic Neurologic: Denies dizziness and Denies paresthesias Allergic/Immunologic Allergic/Immunologic: Denies wheezing
[2022-07-19 14:06] VITALS: BP 144/91; PULSE 103; RESP 18; TEMP 37; O2SAT 99; BMI 46.5
[2022-07-19 15:18] VITALS: BP 144/91; PULSE 103; RESP 18; TEMP 37
== END 2022-07-19 15:25 | disposition home or self-care (01) ==
PROVIDERS: Emergency Provider Nurse Practitioner Family; PCP Nurse Practitioner Family
DX: W24.0XXA Contact with lifting devices, not elsewhere classified, initial encounter (principal); S61.214A Laceration without foreign body of right ring finger without damage to nail, initial encounter; Y92.59 Other trade areas as the place of occurrence of the external cause; Y99.0 Civilian activity done for income or pay
CPT/HCPCS: 12001; 80305; 99212; G0463

== ENCOUNTER 2022-07-27 14:32 | Emergency (ER) | payer OTHER, BC, SELFPAY ==
[2022-07-27 15:22] VITALS: BP 120/85; PULSE 84; RESP 18; TEMP 36.8; O2SAT 100; BMI 39.5
[2022-07-27 15:26] VITALS: BP 120/85; PULSE 84; RESP 18; TEMP 36.8
== END 2022-07-27 15:27 | disposition home or self-care (01) ==
PROVIDERS: Emergency Provider Nurse Practitioner; PCP Nurse Practitioner Family
DX: Z48.02 Encounter for removal of sutures (principal)

== ENCOUNTER 2022-09-04 18:11 | Emergency (ER) | payer BC, OTHER, SELFPAY ==
[2022-09-04 18:13] VITALS: BP 149/96; PULSE 96; RESP 18; TEMP 37.2; O2SAT 99; BMI 47.5
--- NOTE | 2022-09-04 18:25 | PC.NURSE ---
1825 DR. FLYNN AT BEDSIDE FOR EVALUATION
--- NOTE | 2022-09-04 18:28 | CT_ITS ---
PROCEDURE INFORMATION: Exam: CT Chest Without Contrast; Diagnostic Exam date and time: 09/04/2022 6:34 PM Age: 26 years old Clinical indication: Injury or trauma; Fall; Blunt trauma (contusions or hematomas); Additional info: Fall x 3 days ago, right rib and parasternal pain TECHNIQUE: Imaging protocol: Diagnostic computed tomography of the chest without contrast. Radiation optimization: All CT scans at this facility use at least one of these dose optimization techniques: automated exposure control; mA and/or kV adjustment per patient size (includes targeted exams where dose is matched to clinical indication); or iterative reconstruction. COMPARISON: CR XR CHEST 2V 10/08/2021 6:19 PM FINDINGS: Lungs: Unremarkable. No consolidation. No masses. Pleural spaces: Unremarkable. No pneumothorax. No pleural effusion. Heart: Unremarkable. No cardiomegaly. No pericardial effusion. Lymph nodes: Unremarkable. No enlarged lymph nodes. Vasculature: Unremarkable. No aortic aneurysm. Bones/joints: Unremarkable. No acute fracture. Soft tissues: Unremarkable. IMPRESSION: No evidence of intrathoracic injury.
--- NOTE | 2022-09-04 18:35 | PC.NURSE ---
PT TO CT AT THIS TIME
--- NOTE | 2022-09-04 18:47 | HMH.EDGENADL ---
Discharge Plan Disposition Patient Disposition: Home, Self-Care Condition: Fair Prescriptions Prescriptions: No Action lisinopril 10 mg tablet 10 mg PO DAILY hydrochlorothiazide 25 mg tablet 25 mg PO DAILY quetiapine [Seroquel] 50 mg tablet See Rx Instructions PO QHS Qty: 45 1RF Rx Instructions: take 1.5 tablets (75mg) PO every day at bedtime; paroxetine HCl [Paxil] 40 mg tablet 40 mg PO DAILY Qty: 30 1RF clotrimazole 28.4 GM cream 1 applic TP BID 14 Days Qty: 28 2RF duloxetine 60 MG capsule,delayed release(DR/EC) 60 mg PO DAILY cephalexin 500 mg capsule 500 mg PO QID Qty: 40 0RF Referrals Follow up/Referrals: Enma Lawton APRN [Primary Care Provider] - See instructions Clinical Impressions Clinical Impression: Closed fracture of one rib of right side Discharge ED Provider: Yahir Silverman General Adult HPI General Chief complaint: PAIN Stated complaint: ao 09/01 INJURED r sHOULDER Time Seen by Provider: 09/04/22 18:15 Mode of Arrival: Ambulatory Source of Information: Patient Limitations: No Limitations Description of Symptoms (Recalled from ER Triage Doc. by RN): FALL ON TUESDAY, LANDED ON RIGHT SHOULDER. FELT A POP IN CHEST. PAIN IN CENTER OF CHEST History of Present Illness HPI narrative: This is an otherwise healthy 26-year-old male who is presenting with chest pain after fall. Patient states that 3 days prior to arrival, he tripped out of a truck and fell approximately 3 feet onto his right shoulder. He felt a crack in the middle of [his] chest, which has gotten progressively worse over the past 2 days. He has not taken Tylenol, Motrin, or noticed anything that makes the chest pain better, nothing in particular makes it worse other than taking deep breaths and laying on that side. Pain is severe, does not radiate, right parasternal, not associated with shortness of breath, fevers, chills, nausea, vomiting, cough, hemoptysis, or any other concerning history. Related Data Home Medications Medication Instructions Recorded Confirmed duloxetine 60 mg capsule,delayed 60 mg PO DAILY Pain 07/05/21 07/30/22 release hydrochlorothiazide 25 mg tablet 25 mg PO DAILY htn 09/30/21 07/30/22 lisinopril 10 mg tablet 10 mg PO DAILY htn 09/30/21 07/30/22 Previous Rx's Medication Instructions Recorded clotrimazole 1 % topical cream 1 applic topical BID 14 days #28 05/06/22 grams cephalexin 500 mg capsule 500 mg PO QID #40 caps 07/19/22 paroxetine HCl 40 mg tablet (Paxil) 40 mg PO DAILY #30 tabs 07/21/22 quetiapine 50 mg tablet (Seroquel) See Rx Instructions PO QHS #45 tabs 07/21/22 Allergies Allergy/AdvReac Type Severity Reaction Status Date / Time No Known Allergies Allergy Verified 07/19/22 14:08 [facility] Disclaimer: The information contained in this section may have been updated after the patient was seen, as this information can be updated by other users. Medical History Insomnia Recurrent major depression resistant to treatment Social History Smoking Status: Current every day smoker tobacco type: e-cigarettes and smokeless tobacco alcohol intake: never substance use type: denies use current occupational status: employed Travel in the last 8 weeks: None household members: spouse and children housing: house number of children: 1 ROS Obtained: Yes All systems reviewed & no additional complaints except as documented Physical Exam General General appearance: alert and in no apparent distress Head Head exam: atraumatic, normocephalic and normal inspection Eye Eye exam: Present normal appearance, PERRL and EOMI ENT ENT exam: Present normal exam, normal oropharynx, mucous membranes moist, TM's normal bilaterally and normal external ear exam Neck Neck exam: Present normal inspection, full ROM and trachea midline; A
--- NOTE | 2022-09-04 19:05 | PC.NURSE ---
PT MEDICATED AT THIS TIME PER EMAR. NO NEEDS AT THIS TIME. AT BEDSIDE
[2022-09-04 20:08] VITALS: BP 125/82; PULSE 87; RESP 18; TEMP 36.6; O2SAT 97
== END 2022-09-04 20:10 | disposition home or self-care (01) ==
LOC: UTC 18:24 → ER 18:24
PROVIDERS: Emergency Provider Emergency Medicine; PCP Nurse Practitioner Family
DX: S22.31XA Fracture of one rib, right side, initial encounter for closed fracture (principal); G47.00 Insomnia, unspecified; F17.290 Nicotine dependence, other tobacco product, uncomplicated; Z79.899 Other long term (current) drug therapy; W01.0XXA Fall on same level from slipping, tripping and stumbling without subsequent striking against object, initial encounter; Y92.812 Truck as the place of occurrence of the external cause
CPT/HCPCS: 71250; 99285

== ENCOUNTER → 2022-11-27 08:19 | Outpatient (CLI) | payer BC, OTHER, SELFPAY ==
[2022-11-27 10:17] LABS: Alanine Aminotransferase 44 U/L (12-78); Albumin Level 4.2 g/dl (3.5-5.0); Albumin/Globulin Ratio 1.6 (1.1-1.8); Alkaline Phosphatase 49 U/L (38-126); Anion Gap 8.6 mEq/L (5-15); Aspartate Amino Transferase 31 U/L (17-59); Bilirubin,Total 0.7 mg/dl (0.2-1.3); Blood Urea Nitrogen 16 mg/dl (9-20); Calcium 9.1 mg/dl (8.4-10.2); Carbon Dioxide 26 mmol/L (22.0-30.0); Chloride 107 mmol/L (98-107); Chol/HDL Ratio 5.3 (1-3.5); Cholesterol 155 mg/dl (140-200); Estimated Glomerular Filt Rate 134 ml/min (>60); GFR (African American) 162 ML/MIN (>60); Globulin 2.7 g/dL (1.3-3.2); Glucose 106 mg/dl (74-100); HDL Cholesterol 29 mg/dl (40-60); Potassium 4.6 mmoL/L (3.5-5.1); Sodium 137 mmol/L (136-145); Total Protein,Serum 6.9 g/dl (6.3-8.2); Triglycerides 164 mg/dl (30-150); VLDL Cholesterol 33 mg/dL (0-40)
[2022-11-27 10:28] LABS: Direct LDL Cholesterol 98.29 mg/dL (100-129)
[2022-11-27 10:36] LABS: 25-OH Vitamin D, Total 23.7 ng/mL (30-100)
[2022-11-27 10:51] LABS: Thyroid Stimulating Hormone 1.05 uIU/mL (0.465-4.68)
[2022-11-27 11:10] LABS: Vitamin B12 645 pg/mL (239-931)
[2022-12-02 09:24] LABS: Testosterone,Total 199 ng/dL (264-916)
== END ==
PROVIDERS: PCP Nurse Practitioner Family; Visit Provider Nurse Practitioner Family
DX: I10 Essential (primary) hypertension (principal); E66.01 Morbid (severe) obesity due to excess calories; R68.82 Decreased libido; N52.9 Male erectile dysfunction, unspecified; Z68.42 Body mass index [BMI] 45.0-49.9, adult; E55.9 Vitamin D deficiency, unspecified
CPT/HCPCS: 36415; 80053; 80061; 82306; 82607; 84402; 84403; 84443

== ENCOUNTER → 2022-12-07 07:56 | Outpatient (CLI) | payer BC, OTHER, SELFPAY ==
--- NOTE | 2022-12-07 07:59 | CA_ITS ---
FINAL REPORT TECHNIQUE: Grayscale, color Doppler and duplex Doppler ultrasound of the kidneys, aorta and renal arteries was performed. Multiple velocities were measured. CLINICAL HISTORY: HTN,OBESITY,SMOKER FINDINGS: Aorta velocity: 117 cm/sec Right kidney: 14.4 cm. No evidence of hydronephrosis or mass. Right intrarenal RI: 0.46 Right renal artery velocity: 132 cm/sec. Right RAR (Renal artery-Aortic Ratio): 1.13 Left Kidney: 12.9 cm. No evidence of hydronephrosis. There is a questionable stone or small angiomyolipoma in the left kidney. Left intrarenal RI: 0.46 Left renal artery velocity: 151 cm/sec. Left RAR (Renal Artery-Aortic Ratio): 1.3 IMPRESSION: No evidence of significant renal artery stenosis. CT angiogram or postcontrast MR angiogram would be more sensitive for evaluation of possible renal artery stenosis. Reviewed, Interpreted and Dictated by Antoine Pittman III, MD Transcribed by Joanne Espinoza Authenticated and . [facility]
== END ==
PROVIDERS: PCP Nurse Practitioner Family; Visit Provider Nurse Practitioner Family
DX: I10 Essential (primary) hypertension (principal)
CPT/HCPCS: 93976

== ENCOUNTER → 2022-12-22 06:53 | Outpatient (CLI) | payer BC, OTHER, SELFPAY ==
--- NOTE | 2022-12-22 07:03 | CT_ITS ---
FINAL REPORT TECHNIQUE: Axial images through the abdomen and pelvis were performed without contrast. This study was performed with techniques to keep radiation doses as low as reasonably achievable, (ALARA). Individualized dose reduction techniques using automated exposure control or adjustment of mA and/or kV according to the patient's size were employed. CLINICAL HISTORY: ABN RENAL ULTRASOUND COMPARISON: none FINDINGS: Abdomen: The lung bases are clear. The liver is moderately enlarged measuring up to 26 cm in craniocaudal dimension. There is diffuse fatty infiltration. The gallbladder is present. The spleen, pancreas, adrenals and kidneys are unremarkable. No kidney stones or angiomyolipoma identified on the left. Pelvis: The urinary bladder is unremarkable. The appendix is normal. There is no pelvic mass or inflammation. There are bilateral pars defects at L5 level with grade 1 spondylolisthesis and moderate to high-grade bilateral neural foraminal narrowing at this level right greater than left. IMPRESSION: Enlarged fatty infiltrated liver. No kidney stones or angiomyolipoma identified. Bilateral L5 pars defects. Reviewed, Interpreted and Dictated by Marty Quiroz MD Transcribed by Josefina Pearson Authenticated and [facility]
== END ==
PROVIDERS: PCP Nurse Practitioner Family; Visit Provider Nurse Practitioner Family
DX: R93.429 Abnormal radiologic findings on diagnostic imaging of unspecified kidney (principal)
CPT/HCPCS: 74176

== ENCOUNTER 2023-01-12 13:18 | Emergency (ER) | payer OTHER, BC, SELFPAY ==
[2023-01-12 13:19] VITALS: BP 153/92; PULSE 99; RESP 17; TEMP 36.8; O2SAT 98; BMI 49.6
--- NOTE | 2023-01-12 13:41 | EXP.UTC ---
Discharge Plan Disposition Patient Disposition: Home, Self-Care Condition: Good Prescriptions Prescriptions: New cephalexin 500 mg capsule 500 mg PO QID 7 Days Qty: 28 0RF No Action lisinopril 10 mg tablet 10 mg PO DAILY hydrochlorothiazide 25 mg tablet 25 mg PO DAILY paroxetine HCl [Paxil] 40 mg tablet 40 mg PO DAILY Qty: 30 1RF quetiapine [Seroquel] 50 mg tablet See Rx Instructions PO QHS Qty: 45 1RF Rx Instructions: take 1.5 tablets (75mg) PO every day at bedtime; clotrimazole 28.4 GM cream 1 applic TP BID 14 Days Qty: 28 2RF duloxetine 60 MG capsule,delayed release(DR/EC) 60 mg PO DAILY Referrals Follow up/Referrals: Enma Lawton APRN [Primary Care Provider] - See instructions Activity Restrictions/Add. Instructions Additional Instructions/Restrictions: Keep the wound clean and dry. Keep a dressing on it if you are going to be getting it dirty. Watch the wound for signs of infection, such as redness, swelling, drainage, fever. etc. Take tylenol or ibuprofen for pain. Follow up with your regular doctor. Return in 7 to 10 days to have the sutures removed. GO TO THE ER FOR ANY WORSENING SYMPTOMS OR CONCERNS. Wear the finger splint for the next 48 to 72 hours to give the wound plenty of time to start healing. Then take the splint off. Clinical Impressions Clinical Impression: Laceration of right middle finger Stand Alone Forms Stand Alone Forms: Work/School Release Discharge ED Provider: Pancho Lo [facility] [place] HPI General Stated complaint: AO@Work 01/12 1230 RT middle finger lesion Mode of Arrival: Ambulatory Source of Information: Patient Limitations: No Limitations Time Seen by Provider: 01/12/23 13:41 Description of Symptoms (Recalled from Triage Doc. by RN): pt to ED with small laceration to his right middle finger. pt reports having a tetanus immunization within the last few years. History of Present Illness Provider Complaint: He was working on a piece of heavy equipment at his job, when what he was holding slipped and hit him on the right middle finger. He has a small laceration on the dorsal aspect of his right middle finger. Related Data Home Medications Medication Instructions Recorded Confirmed duloxetine 60 mg capsule,delayed 60 mg PO DAILY Pain 07/05/21 10/03/22 release hydrochlorothiazide 25 mg tablet 25 mg PO DAILY htn 09/30/21 10/03/22 lisinopril 10 mg tablet 10 mg PO DAILY htn 09/30/21 10/03/22 Previous Rx's Medication Instructions Recorded clotrimazole 1 % topical cream 1 applic topical BID 14 days #28 05/06/22 grams paroxetine HCl 40 mg tablet (Paxil) 40 mg PO DAILY #30 tabs 09/21/22 quetiapine 50 mg tablet (Seroquel) See Rx Instructions PO QHS #45 tabs 09/21/22 cephalexin 500 mg capsule 500 mg PO QID 7 days #28 caps 01/12/23 Allergies Allergy/AdvReac Type Severity Reaction Status Date / Time No Known Allergies Allergy Verified 09/15/22 14:52 [facility] Disclaimer: The information contained in this section may have been updated after the patient was seen, as this information can be updated by other users. Medical History Insomnia Recurrent major depression resistant to treatment Social History Smoking Status: Current every day smoker tobacco type: e-cigarettes and smokeless tobacco alcohol intake: never substance use type: denies use current occupational status: employed Travel in the last 8 weeks: None household members: spouse and children housing: house number of children: 1 ROS Obtained: Yes All systems reviewed & no additional complaints except as documented Constitutional Constitutional: Denies chills and Denies fever(s) Eyes Eyes: Denies eye discharge ENT Ears, Nose, Mouth, and Throat: Denies dizziness, Denies otalgia and Denies sore throat Cardio
[2023-01-12 14:00] VITALS: BP 153/92; PULSE 99; RESP 17; TEMP 36.8; O2SAT 98; BMI 49.6
[2023-01-12 14:26] VITALS: BP 153/92; PULSE 99; RESP 17; TEMP 36.8; O2SAT 98
[2023-03-11 09:57] LABS: COC Drug Screen Collection Only
== END 2023-01-12 14:35 | disposition home or self-care (01) ==
PROVIDERS: Emergency Provider Nurse Practitioner Family; PCP Nurse Practitioner Family
DX: S61.212A Laceration without foreign body of right middle finger without damage to nail, initial encounter (principal); W31.9XXA Contact with unspecified machinery, initial encounter; F17.290 Nicotine dependence, other tobacco product, uncomplicated; I10 Essential (primary) hypertension; E66.9 Obesity, unspecified; G47.33 Obstructive sleep apnea (adult) (pediatric); Z99.89 Dependence on other enabling machines and devices
CPT/HCPCS: 12001; 99212; 99214; G0463

== ENCOUNTER 2023-01-21 16:20 | Emergency (ER) | payer BC, OTHER, SELFPAY ==
[2023-01-21 16:32] VITALS: BP 153/92; PULSE 75; RESP 16; TEMP 36.8
[2023-01-21 16:33] VITALS: BP 153/92; PULSE 75; TEMP 36.8; O2SAT 95; BMI 47.5
== END 2023-01-21 16:35 | disposition home or self-care (01) ==
LOC: UTC 16:23
PROVIDERS: Emergency Provider Physician Assistant; PCP Nurse Practitioner Family
DX: S61.212A Laceration without foreign body of right middle finger without damage to nail, initial encounter (principal); Z48.02 Encounter for removal of sutures

== ENCOUNTER 2023-04-05 20:58 | Emergency (ER) | payer BC, OTHER, SELFPAY ==
[2023-04-05 21:08] VITALS: BP 158/95; PULSE 82; RESP 17; TEMP 37.3; O2SAT 99; BMI 44.7
--- NOTE | 2023-04-05 21:14 | XR_ITS ---
PROCEDURE INFORMATION: Exam: XR Left Tibia and Fibula Exam date and time: 04/05/2023 9:34 PM Age: 27 years old Clinical indication: Pain; Lower leg; Left; Additional info: Pain no known injury TECHNIQUE: Imaging protocol: Radiologic exam of the left tibia and fibula. Views: 2 views. COMPARISON: CR XR ANKLE LT MIN 3V 01/07/2023 21:33 FINDINGS: Bones/joints: No acute fracture or dislocation. Soft tissues: Normal. IMPRESSION: No acute fracture or dislocation.
--- NOTE | 2023-04-05 21:14 | XR_ITS ---
PROCEDURE INFORMATION: Exam: XR Left Knee Exam date and time: 04/05/2023 9:35 PM Age: 27 years old Clinical indication: Pain; Ankle and lower leg; Left; Additional info: Pain-no known injury TECHNIQUE: Imaging protocol: Radiologic exam of the left knee. Views: 3 views. COMPARISON: CR XR TIBIA FIBULA LT 2V 01/07/2023 21:34 FINDINGS: Bones/joints: Patella [place], which is most likely due to positioning. Soft tissues: Normal. IMPRESSION: Patella [place], which is most likely due to positioning. Please exclude patellar tendon injury.
--- NOTE | 2023-04-05 21:14 | XR_ITS ---
PROCEDURE INFORMATION: Exam: XR Left Ankle Exam date and time: 04/05/2023 9:33 PM Age: 27 years old Clinical indication: Pain; Ankle and lower leg; Left; Additional info: Pain, no known injury TECHNIQUE: Imaging protocol: Radiologic exam of the left ankle. Views: 3 or more views. COMPARISON: CR XR FOOT LT MIN 3V 01/08/2022 17:42 FINDINGS: Bones/joints: No acute fracture or dislocation. Soft tissues: Moderate soft tissue swelling around the hindfoot and ankle. IMPRESSION: 1. Moderate soft tissue swelling around the hindfoot and ankle. Please exclude soft tissue injury. 2. No acute fracture or dislocation.
[2023-04-05 21:22] LABS: Basophils # 0.1 K/mm3 (0-0.2); Basophils % 0.7 % (0.1-2.0); Eosinophils # 0.3 K/mm3 (0.0-0.4); Eosinophils % 2.5 % (0.1-12.0); Hemoglobin 15.8 g/dL (14.1-18.0); Lymphocytes # 2.9 K/mm3 (0.7-4.5); Lymphocytes % 28.3 % (10-50); Mean Corpuscular HGB Conc 32.9 g/dL (31.8-35.4); Mean Corpuscular Hemoglobin 27.3 pg (27.0-31.2); Mean Platelet Volume 8.3 fl (7.4-10.4); Monocytes # 0.5 K/mm3 (0.1-1.0); Monocytes % 4.9 % (1.7-9.3); Neutrophils # 6.6 K/mm3 (1.8-7.8); Neutrophils % 63.7 % (37.0-80.0); Platelet Count 265 K/mm3 (142-424); Red Blood Count 5.78 M/mm3 (4.60-6.20); Red Cell Distribution Width 14.4 % (11.5-17.5); White Blood Count 10.4 K/mm3 (4.8-10.8)
[2023-04-05 21:28] LABS: Chloride 101 mmol/L (98-107); Sodium 139 mmol/L (136-145)
[2023-04-05 21:30] LABS: Alanine Aminotransferase 61 U/L (12-78); Alkaline Phosphatase 51 U/L (38-126); Aspartate Amino Transferase 42 U/L (17-59); Bilirubin,Total 0.7 mg/dl (0.2-1.3); Blood Urea Nitrogen 10 mg/dl (9-20); Carbon Dioxide 28 mmol/L (22.0-30.0); Creatinine Clearance Estimated 172 mL/min (50-200); Estimated Glomerular Filt Rate 134 ml/min (>60); GFR (African American) 162 ML/MIN (>60)
[2023-04-05 21:31] LABS: Albumin Level 4.7 g/dl (3.5-5.0); Albumin/Globulin Ratio 1.3 (1.1-1.8); Calcium 9.4 mg/dl (8.4-10.2); Globulin 3.6 g/dL (1.3-3.2); Glucose 90 mg/dl (74-100); Lactic Acid 1.6 mmol/L (0.7-2.1); Total Protein,Serum 8.3 g/dl (6.3-8.2)
--- NOTE | 2023-04-05 21:40 | PC.NURSE ---
Pt gone to RAD via wheelchair
[2023-04-05 21:49] LABS: Erythrocyte Sedimentation Rate 14 mm/hr (0-15)
--- NOTE | 2023-04-05 23:01 | PC.NURSE ---
Dr. Espinoza at
--- NOTE | 2023-04-05 23:17 | HMH.EDSKAF ---
Discharge Plan Disposition Patient Disposition: Home, Self-Care Prescriptions Prescriptions: New prednisone [prednisone] 20 mg tablet 20 mg PO BID Qty: 10 0RF No Action enalapril maleate 2.5 mg tablet 2.5 mg PO DAILY paroxetine HCl [Paxil] 40 mg tablet 40 mg PO DAILY Wegovy 1.7 mg/0.75 mL pen injector 1.7 mg SQ DIRECTED Patient Comments: INJECT 1.7 MG SUBCUTANEOUSLY ONCE A WEEK FOR 28 DAYS Referrals Follow up/Referrals: Enma Lawton APRN [Primary Care Provider] - See instructions oLuisa Skinner DPM [Staff Physician] - See instructions Clinical Impressions Clinical Impression: Peroneal tendonitis of left lower leg Instructions Patient Instructions: DI for Tendinitis Discharge ED Provider: Alexis (ED)Frankie Skin/Abscess/FB HPI General Chief complaint: Skin/Abscess/Foreign Body Stated complaint: lower left leg pain Time Seen by Provider: 04/05/23 22:50 Mode of Arrival: Family Vehicle Source of Information: Patient and Medical Record Limitations: No Limitations Description of Symptoms (Recalled from ER Triage Doc. by RN): LLE LATERAL PAIN AND SLIGHT REDNESS X 1 DAY. PATIENT STATES PAIN WOKE HIM UP EARLIER AND HE ATTEMPT TO CHANGE POSITION AND ALTER MOVEMENTS TO ACCOMADATE PAIN. VSS. NO DIFFICULTY WALKING. JUST HURTS ALOT . 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 - no other jt pain and no fever or rash MD complaint: other (joint pain) Onset (ago): hour(s) Location: L foot Severity: moderate Associated symptoms: denies other symptoms Related Data Home Medications Medication Instructions Recorded Confirmed enalapril maleate 2.5 mg tablet 2.5 mg PO DAILY Depression 04/05/23 04/05/23 paroxetine HCl 40 mg tablet (Paxil) 40 mg PO DAILY Depression 04/05/23 04/05/23 semaglutide (weight loss) 1.7 1.7 mg SQ DIRECTED Weight Loss 04/05/23 04/05/23 mg/0.75 mL subcutaneous pen injector (Wegovy) Previous Rx's Medication Instructions Recorded prednisone 20 mg tablet 20 mg PO BID #10 tabs 04/05/23 Allergies Allergy/AdvReac Type Severity Reaction Status Date / Time No Known Allergies Allergy Verified 09/15/22 14:52 [facility] Disclaimer: The information contained in this section may have been updated after the patient was seen, as this information can be updated by other users. Medical History Insomnia Recurrent major depression resistant to treatment Social History Smoking Status: Current every day smoker tobacco type: e-cigarettes and smokeless tobacco alcohol intake: never substance use type: denies use current occupational status: employed Travel in the last 8 weeks: None household members: spouse and children housing: house number of children: 1 ROS Obtained: Yes All systems reviewed & no additional complaints except as documented Physical Exam General General appearance: alert Head Head exam: normocephalic Eye Eye exam: Present PERRL and EOMI ENT ENT exam: Present mucous membranes moist Neck Neck exam: Present trachea midline Respiratory Respiratory exam: Absent respiratory distress Cardiovascular Cardiovascular exam: Present regular rate Expanded Lower Extremity Exam Left: Knee exam: Absent swelling Lower leg exam: Present Achilles tendon intact (dec creased but not tender ); Absent tenderness Ankle exam: Present tenderness and other (slight warmth lt lat malelous and tender peroneal tendon ) Foot/toe exam: Present deformity Neurovascular/Tendon exam: Absent pulse deficit, motor deficit, sensory deficit or foot drop Gait: antalgic Neurological Exam Neurological exam: Present alert, oriented X3 and CN II-XII intact; Absent motor sensory deficit Psychiatric
--- NOTE | 2023-04-05 23:28 | PC.NURSE ---
labs collect for RA panel per .
[2023-04-05 23:30] LABS: Uric Acid 10.2 mg/dl (3.5-8.5)
[2023-04-05 23:42] VITALS: BP 128/82; PULSE 80; RESP 17; TEMP 37.3; O2SAT 99
[2023-04-07 11:13] LABS: RA Latex Turbid. <10.0 IU/mL (<14.0)
[2023-04-07 15:47] LABS: Antinuclear Antibodies, IFA Negative (.)
== END 2023-04-05 23:46 | disposition home or self-care (01) ==
PROVIDERS: Emergency Provider Emergency Medicine; PCP Nurse Practitioner Family
DX: M76.72 Peroneal tendinitis, left leg (principal); F32.9 Major depressive disorder, single episode, unspecified; F17.290 Nicotine dependence, other tobacco product, uncomplicated
CPT/HCPCS: 73562; 73590; 73610; 80053; 83605; 84550; 85025; 85651; 86038; 86140; 86431; 87040; 96374; 96375; 99284; 99285

== ENCOUNTER 2023-04-23 18:07 | Emergency (ER) | payer BC, OTHER, SELFPAY ==
--- NOTE | 2023-04-23 18:11 | XR_ITS ---
PROCEDURE INFORMATION: Exam: XR Left Hand Exam date and time: 04/23/2023 6:11 PM Age: 27 years old Clinical indication: Injury or trauma; Other: Smashed; Crushing; Hand; Left; Patient HX: Inj to 2nd, 3rd, and 4th digits; Additional info: Smashed hand between and engine and car frame TECHNIQUE: Imaging protocol: Radiologic exam of the left hand. Views: 3 or more views. COMPARISON: No relevant prior studies available. FINDINGS: Bones/joints: No acute fracture or malalignment. Soft tissues: Normal. IMPRESSION: No acute osseous findings.
[2023-04-23 18:15] VITALS: BP 156/91; PULSE 86; RESP 18; TEMP 36.8; O2SAT 100; BMI 44.7
[2023-04-23 18:36] VITALS: BP 156/91; PULSE 86; RESP 18; TEMP 36.8; O2SAT 100
--- NOTE | 2023-04-23 18:48 | EXP.UTC ---
Discharge Plan Disposition Patient Disposition: Home, Self-Care Condition: Good Prescriptions Prescriptions: New cephalexin [cephalexin] 500 mg tablet 500 mg PO BID 10 Days Qty: 20 0RF No Action paroxetine HCl [Paxil] 40 mg tablet 40 mg PO DAILY Qty: 30 2RF enalapril maleate 2.5 mg tablet 2.5 mg PO DAILY Wegovy 1.7 mg/0.75 mL pen injector 1.7 mg SQ DIRECTED Patient Comments: INJECT 1.7 MG SUBCUTANEOUSLY ONCE A WEEK FOR 28 DAYS prednisone [prednisone] 20 mg tablet 20 mg PO BID Qty: 10 0RF Referrals Follow up/Referrals: Enma Lawton APRN [Primary Care Provider] - See instructions Clinical Impressions Clinical Impression: Laceration Instructions Patient Instructions: DI for Laceration Repair -- Finger Discharge ED Provider: Monica ([facility] [place] General Stated complaint: smashed finger [id number] Mode of Arrival: Ambulatory Source of Information: Patient Limitations: No Limitations Time Seen by Provider: 04/23/23 18:48 Description of Symptoms (Recalled from Triage Doc. by RN): PATIENT STATES HE SMASHED HIS FIRST AND THIRD LEFT FINGERS WHEN A FIDEL SLIPPED WHILE WORKING ON A CAR HEENT Symptoms (Recalled from RN notes): No Resp Symptoms (Recalled from RN notes): No Skin Symptoms (Recalled from RN notes): Yes MS Symptoms (Recalled from RN notes): Yes Functional Status (Recalled from RN notes): WNL History of Present Illness Provider Complaint: 27 yr old male presents for hand pain and lacerations. pt states he was working on a car and the fidel fell trapping his left hand in between the frame and motor. Related Data Home Medications Medication Instructions Recorded Confirmed enalapril maleate 2.5 mg tablet 2.5 mg PO DAILY Depression 04/05/23 04/05/23 semaglutide (weight loss) 1.7 1.7 mg SQ DIRECTED Weight Loss 04/05/23 04/05/23 mg/0.75 mL subcutaneous pen injector (Wegovy) Previous Rx's Medication Instructions Recorded prednisone 20 mg tablet 20 mg PO BID #10 tabs 04/05/23 paroxetine HCl 40 mg tablet (Paxil) 40 mg PO DAILY Depression #30 tabs 04/11/23 cephalexin 500 mg tablet 500 mg PO BID 10 days #20 tabs 04/23/23 Allergies Allergy/AdvReac Type Severity Reaction Status Date / Time No Known Allergies Allergy Verified 09/15/22 14:52 Worker's Comp Is this a Worker's Comp case?: No [facility] Disclaimer: The information contained in this section may have been updated after the patient was seen, as this information can be updated by other users. Medical History , [employer]) Insomnia Recurrent major depression resistant to treatment Social History , [employer]) Smoking Status: Current every day smoker tobacco type: e-cigarettes and smokeless tobacco alcohol intake: never substance use type: denies use current occupational status: employed Travel in the last 8 weeks: None household members: spouse and children housing: house number of children: 1 ROS Obtained: Yes All systems reviewed & no additional complaints except as documented Constitutional Constitutional: Reports system reviewed and no additional complaints, except as documented Eyes Eyes: Reports system reviewed and no additional complaints, except as documented ENT Ears, Nose, Mouth, and Throat: Reports system reviewed and no additional complaints, except as documented Cardiovascular Cardiovascular: Reports system reviewed and no additional complaints, except as documented Respiratory Respiratory: Reports system reviewed and no additional complaints, except as documented Musculoskeletal Musculoskeletal: Reports system reviewed and no additional complaints, except as documented, Reports as per HPI and Reports joint swelling Integumentary/Breasts Skin/Breast: Reports system reviewed and no additional complaints, except as documented, Reports as per HPI and Reports othe
== END 2023-04-23 19:05 | disposition home or self-care (01) ==
PROVIDERS: Emergency Provider Nurse Practitioner Family; PCP Nurse Practitioner Family
DX: S61.211A Laceration without foreign body of left index finger without damage to nail, initial encounter (principal); F17.290 Nicotine dependence, other tobacco product, uncomplicated; F33.9 Major depressive disorder, recurrent, unspecified; G47.00 Insomnia, unspecified; W23.0XXA Caught, crushed, jammed, or pinched between moving objects, initial encounter
CPT/HCPCS: 12001; 73130; 99213; 99214; G0463

== ENCOUNTER 2023-08-03 12:06 | Emergency (ER) | payer BC, OTHER, SELFPAY ==
[2023-08-03 12:20] VITALS: BP 138/83; PULSE 82; RESP 18; TEMP 36.8; O2SAT 99; BMI 46.1
--- NOTE | 2023-08-03 12:42 | EXP.UTC ---
Discharge Plan Disposition Patient Disposition: Home, Self-Care Condition: Good Prescriptions Prescriptions: New cyclobenzaprine 10 mg tablet 10 mg PO TID PRN (Reason: muscle spasm) Qty: 20 0RF ibuprofen 600 mg tablet 600 mg PO Q6HP PRN (Reason: Moderate Pain) Qty: 20 0RF No Action paroxetine HCl [Paxil] 40 mg tablet 40 mg PO DAILY Qty: 30 2RF enalapril maleate 2.5 mg tablet 2.5 mg PO DAILY Wegovy 1.7 mg/0.75 mL pen injector 1.7 mg SQ DIRECTED Patient Comments: INJECT 1.7 MG SUBCUTANEOUSLY ONCE A WEEK FOR 28 DAYS Referrals Follow up/Referrals: Leyda Baxter APRN [Primary Care Provider] - See instructions Activity Restrictions/Add. Instructions Additional Instructions/Restrictions: *Ibuprofen fransisca 6 hours with meal as needed for pain/inflammation *Not additional anti-inflammatory like motrin, aleve, advil with the above amount of ibuprofen. You can still take Tylenol every 4 hours as needed if you need something else for pain *Ice 20 minutes every 2 hours for the first 48 hours after the initial injury followed by moist heat every 20 minutes 3-4 times a day to affected area *Muscle relaxer every 8 hours as needed for muscle spasms but remember, it WILL cause drowsiness You cannot take it and drive, operate machinery or care for small children. *Keep this area active, no movement leads to more stiffness, However take it easy and avoid heavy lifting pushing or pulling *Follow up with you family doctor if no improvement for further treatment Clinical Impressions Clinical Impression: Low back pain Qualifiers: Chronicity: unspecified Back pain laterality: left Sciatica presence: without sciatica Qualified Code(s): M54.50 - Low back pain, unspecified Stand Alone Forms Stand Alone Forms: Work/School Release Instructions Patient Instructions: DI for Low Back Pain, Low Back Pain, Cyclobenzaprine Discharge ED Provider: Julia Crowe [facility] General Stated complaint: back pain, no accident Mode of Arrival: Ambulatory Source of Information: Patient Limitations: No Limitations Time Seen by Provider: 08/03/23 12:42 Description of Symptoms (Recalled from Triage Doc. by RN): PATIENT C/O MID-LEFT BACK PAIN X 4 DAYS HEENT Symptoms (Recalled from RN notes): No Resp Symptoms (Recalled from RN notes): No Skin Symptoms (Recalled from RN notes): No MS Symptoms (Recalled from RN notes): Yes Functional Status (Recalled from RN notes): WNL History of Present Illness Provider Complaint: Patient states that he has been having pain in his left lower back for about 4 days States that he has back pain on and off but he was working and slipped and twisted his lower back and has been having pain ever since with certain movements and bending States that feels like he may have pulled something so today when he was still having pain he came in to get it checked Denies loss of control of bowel or bladder Related Data Home Medications Medication Instructions Recorded Confirmed enalapril maleate 2.5 mg tablet 2.5 mg PO DAILY Depression 04/05/23 08/03/23 semaglutide (weight loss) 1.7 1.7 mg SQ DIRECTED Weight Loss 04/05/23 08/03/23 mg/0.75 mL subcutaneous pen injector (Wegovy) Previous Rx's Medication Instructions Recorded paroxetine HCl 40 mg tablet (Paxil) 40 mg PO DAILY Depression #30 tabs 07/04/23 cyclobenzaprine 10 mg tablet 10 mg PO TID PRN muscle spasm #20 08/03/23 tabs ibuprofen 600 mg tablet 600 mg PO Q6HP PRN Moderate Pain 08/03/23 #20 tabs Allergies Allergy/AdvReac Type Severity Reaction Status Date / Time No Known Allergies Allergy Verified 07/04/23 08:33 Worker's Comp Is this a Worker's Comp case?: No [facility] Disclaimer: The information contained in this section may have been updated after the patient was seen, as this information can be updated by other users. Medical History (Updated 08/03/23 @ 14:14 by Julia Crowe APRN) Hypertension
--- NOTE | 2023-08-03 12:44 | XR_ITS ---
FINAL REPORT CLINICAL HISTORY: Low back pain, no numbness or tingling down legs COMPARISON: 04/09/2020 FINDINGS: 3 views of the lumbar spine were obtained. There is no evidence of fracture or dislocation. There is mild degenerative change. There is 6 mm of anterolisthesis of L5 on S1, worse compared to the prior study. There is partial lumbarization of S1. L5 pars defects are noted. IMPRESSION: Degenerative changes with worsening anterolisthesis of L5 on S1. Reviewed, Interpreted and Dictated by Antoine Pittman III, MD Transcribed by Josefina Pearson Authenticated and [facility]
[2023-08-03 14:16] VITALS: BP 138/83; PULSE 82; RESP 18; TEMP 36.8; O2SAT 99
== END 2023-08-03 14:20 | disposition home or self-care (01) ==
PROVIDERS: Emergency Provider Nurse Practitioner; PCP Nurse Practitioner Family
DX: M54.50 Low back pain, unspecified (principal); F17.290 Nicotine dependence, other tobacco product, uncomplicated; F33.9 Major depressive disorder, recurrent, unspecified; I10 Essential (primary) hypertension
CPT/HCPCS: 72100; 99212; 99214; G0463

== ENCOUNTER 2023-12-09 16:12 | Outpatient (CLI) | payer BC, OTHER, SELFPAY ==
--- NOTE | 2023-12-09 16:15 | XR_ITS ---
PROCEDURE INFORMATION: Exam: XR Right Foot Exam date and time: 12/09/2023 4:17 PM Age: 28 years old Clinical indication: Other: Lump; Additional info: Lump of foot on lateral side of foot near ankle TECHNIQUE: Imaging protocol: Radiologic exam of the right foot. Views: 3 or more views. COMPARISON: No relevant prior studies available. FINDINGS: Bones/joints: The osseous structures appear intact with no evidence of acute fracture, dislocation, or malalignment. Joint spaces are preserved. No abnormal bone density or destructive lesions are noted. Soft tissues: Soft tissues appear unremarkable. IMPRESSION: At the time of imaging, there is no evidence for acute osseous abnormalities. Clinical correlation is advised for comprehensive assessment.
[2023-12-09 16:28] LABS: Microscopic, Urine URINE MICROSCOPIC (MICROSCOPIC)
[2023-12-09 17:06] LABS: Appearance,Urine CLEAR (Clear); Bilirubin,Urine Negative (Negative); Blood, Urine Negative (Negative); Color,Urine YELLOW (Yellow); Glucose,Urine (UA) Negative (Negative); Ketones,Urine Negative (Negative); Leukocyte Esterase,Urine Negative (Negative); Nitrate,Urine Negative (Negative); PH,Urine 6.5 (5.0-8.5); Protein,Urine Negative (Negative); Specific Gravity, Urine 1.025 (1.005-1.030)
== END 2023-12-09 23:59 ==
LOC: RAD 16:12
PROVIDERS: PCP Nurse Practitioner Family; Visit Provider Nurse Practitioner Family
DX: M79.671 Pain in right foot (principal); N53.12 Painful ejaculation; B96.89 Other specified bacterial agents as the cause of diseases classified elsewhere
CPT/HCPCS: 73630; 81001; 87086

== ENCOUNTER 2023-12-20 09:55 | Outpatient (CLI) | payer BC, OTHER, SELFPAY ==
--- NOTE | 2023-12-20 09:55 | US_ITS ---
FINAL REPORT TECHNIQUE: Ultrasound images of the testicles were obtained bilaterally. Color Doppler images were obtained. CLINICAL HISTORY: Left-sided pain and swelling for a couple of months COMPARISON: None FINDINGS: Right testicle measures 3.9 cm. There is normal blood flow. There is no evidence of mass. Left testicle measures 3.4 cm. There is normal blood flow. There is no evidence of mass. There is a left varicocele. Small left hydrocele is noted. IMPRESSION: No evidence of testicular mass or torsion. Left varicocele and small hydrocele. Reviewed, Interpreted and Dictated by Antoine Pittman III, MD Transcribed by Josefina Pearson Authenticated and [facility]
== END 2023-12-20 23:59 ==
LOC: RAD 09:55
PROVIDERS: PCP Nurse Practitioner Family; Visit Provider Nurse Practitioner Family
DX: N50.89 Other specified disorders of the male genital organs (principal); N53.12 Painful ejaculation
CPT/HCPCS: 76870

== ENCOUNTER 2024-01-04 16:05 | Outpatient (CLI) | payer BC, OTHER, SELFPAY ==
--- NOTE | 2024-01-04 16:06 | MR_ITS ---
PROCEDURE INFORMATION: Exam: MR Right Lower Extremity Other Than Joint Without Contrast; Foot Exam date and time: 01/04/2024 4:00 PM Age: 28 years old Clinical indication: Other: Lump; Patient HX: Marker on knot; Additional info: Right foot lump TECHNIQUE: Imaging protocol: Magnetic resonance imaging of the right lower extremity without contrast. Exam focused on the foot. COMPARISON: CR XR FOOT RT MIN 3V 12/09/2023 4:17 PM FINDINGS: Bones/joints: No bone abnormalities. Articular cartilage is normal. No joint effusion. LIGAMENTS: Lisfranc ligament: No evidence of tear. TENDONS: Flexor tendons of foot: No tears or fluid. Tibialis posterior tendon: No tears or fluid. Peroneal tendons: No tears or fluid. Extensor tendons of foot: No tears or fluid. Tibialis anterior tendon: No tears or fluid. Tarsal canal (Sinus tarsi): No signal abnormalities. Tarsal tunnel: Normal fat signal. Soft tissues: A 9 mm, subcutaneous, T1 hypointense, T2 hyperintense cystic nodule lateral to the base of the 5th metatarsal has no surrounding edema or adjacent bony erosion and corresponds to the skin marker identifying a palpable lump of concern. Plantar fascia: No masses, edema, or tear. IMPRESSION: 1. No acute findings in the right foot. 2. Subcutaneous 9 mm cyst lateral to the base of the 5th metatarsal, likely a benign ganglion cyst.
== END 2024-01-04 23:59 ==
LOC: RAD 16:06
PROVIDERS: PCP Nurse Practitioner Family; Visit Provider Nurse Practitioner Family
DX: R22.41 Localized swelling, mass and lump, right lower limb (principal)
CPT/HCPCS: 73718

== ENCOUNTER 2024-01-09 17:42 | Outpatient (CLI) | payer BC, OTHER, SELFPAY ==
[2024-01-10 21:55] LABS: Neisseria gonorrhoeae, NAA Negative (Negative)
== END 2024-01-09 23:59 ==
LOC: LAB.DROPOF 17:42
PROVIDERS: PCP Urology; Visit Provider Urology
DX: N39.0 Urinary tract infection, site not specified (principal); N50.812 Left testicular pain
CPT/HCPCS: 87491; 87563; 87591

== ENCOUNTER 2024-05-26 08:01 | Emergency (ER) | payer BC, SELFPAY ==
[2024-05-26 08:10] VITALS: BP 153/95; PULSE 93; RESP 20; TEMP 37.4; O2SAT 96; BMI 48.8
--- NOTE | 2024-05-26 08:22 | EXP.UTC ---
Discharge Plan Disposition Patient Disposition: Home, Self-Care Condition: Good Prescriptions Prescriptions: New doxycycline hyclate 100 mg tablet 100 mg PO BID Qty: 20 0RF prednisone 20 mg tablet 20 mg PO BID Qty: 10 0RF dextromethorphan-guaifenesin [Mucinex DM] 60-1,200 mg tablet extended release 12 hr 1 tab PO BID Qty: 20 0RF albuterol sulfate 90 mcg/actuation HFA aerosol inhaler 2 inh inhalation Q4-6H PRN (Reason: shortness of breath or wheezing) Qty: 8.5 0RF Referrals Follow up/Referrals: Enma Lawton APRN [Primary Care Provider] - See instructions Activity Restrictions/Add. Instructions Additional Instructions/Restrictions: Follow up with Enma next week Clinical Impressions Clinical Impression: Pneumonia Instructions Patient Instructions: Pneumonia-Adult Print Language Print Language: Thai Discharge ED Provider: Sherrell Fortune [facility] HPI General Stated complaint: congestion cough diarrhea Mode of Arrival: Ambulatory Source of Information: Patient Limitations: No Limitations Time Seen by Provider: 05/26/24 08:22 Description of Symptoms (Recalled from Triage Doc. by RN): PATIENT C/O COUGH, CHEST CONGESTION, DIARRHEA, HEADACHE, AND INTERMITTEN FEVER X 1 WEEK HEENT Symptoms (Recalled from RN notes): Yes Resp Symptoms (Recalled from RN notes): Yes Skin Symptoms (Recalled from RN notes): No MS Symptoms (Recalled from RN notes): No Functional Status (Recalled from RN notes): WNL History of Present Illness Provider Complaint: Cough, congestion, wheezing, SOA, fever X 1 week. Cough mostly nonproductive because feels as if it gets stuck. Coughs so hard he can't catch his breath. Gagging from coughing. Occasional diarrhea. Onset (ago): week(s) (1) Location: chest Relieving factors: none Exacerbating factors: none Associated symptoms: cough Treatments prior to arrival: none Related Data Previous Rx's ?Medication ?Instructions ?Recorded albuterol sulfate 90 mcg/actuation 2 inh inhalation Q4-6H PRN 05/26/24 aerosol inhaler shortness of breath or wheezing #8.5 grams dextromethorphan-guaifenesin ER 60 1 tab PO BID #20 tabs 05/26/24 mg-1,200 mg tab,extend release,12hr (Mucinex DM) doxycycline hyclate 100 mg tablet 100 mg PO BID #20 tabs 05/26/24 prednisone 20 mg tablet 20 mg PO BID #10 tabs 05/26/24 Allergies Allergy/AdvReac Type Severity Reaction Status Date / Time No Known Allergies Allergy Verified 01/13/24 15:23 Worker's Comp Is this a Worker's Comp case?: No PFSH [facility] Disclaimer: The information contained in this section may have been updated after the patient was seen, as this information can be updated by other users. Medical History (Updated 05/26/24 @ 08:37 by JACQUELYN Hernandez) Liver disease Depression Anxiety Hypertension Insomnia Recurrent major depression resistant to treatment Social History Smoking Status: Current every day smoker tobacco type: e-cigarettes and smokeless tobacco alcohol intake: never substance use type: denies use current occupational status: employed Travel in the last 8 weeks: None household members: spouse and children housing: house number of children: 1 ROS Obtained: Yes All systems reviewed & no additional complaints except as documented Respiratory Respiratory: Reports shortness of breath, Reports chest congestion and Reports cough Gastrointestinal Gastrointestingal: Reports loose stools Physical Exam General General appearance: alert and in no apparent distress Head Head exam: atraumatic, normocephalic and normal inspection Eye Eye exam: Present normal appearance, PERRL and EOMI ENT ENT exam: Present normal exam, normal oropharynx, mucous membranes moist, TM's normal bilaterally and normal external ear exam Neck Neck exam: Present normal inspection, full ROM and trachea midline; Absent meningismus or lymphadenopathy
[2024-05-26 08:38] VITALS: BP 153/95; PULSE 93; RESP 20; TEMP 37.4; O2SAT 96
== END 2024-05-26 08:44 | disposition home or self-care (01) ==
PROVIDERS: Emergency Provider Physician Assistant; PCP Nurse Practitioner Family
DX: J18.9 Pneumonia, unspecified organism (principal); R06.02 Shortness of breath; R06.2 Wheezing; R05.9 Cough, unspecified
CPT/HCPCS: 96372; 99212; 99214; G0463; J0696; J1010

== ENCOUNTER 2024-11-10 14:42 | Emergency (ER) | payer BC, SELFPAY ==
[2024-11-10 14:57] VITALS: BP 151/95; PULSE 139; RESP 18; TEMP 37.6; O2SAT 95; BMI 49.1
[2024-11-10 15:11] LABS: UTC Influenza A Antigen Positive (Negative); UTC Influenza B Antigen Negative (Negative)
--- NOTE | 2024-11-10 15:12 | ED_ITS ---
Discharge Plan Disposition Patient Disposition: Home, Self-Care Condition: Good Prescriptions Prescriptions: New oseltamivir [Tamiflu] 75 mg capsule 75 mg PO BID 5 Days Qty: 10 0RF No Action Caplyta 42 mg capsule 42 mg PO DAILY Qty: 30 1RF Referrals Follow up/Referrals: Enma Lawton APRN [Primary Care Provider] - See instructions Activity Restrictions/Add. Instructions Additional Instructions/Restrictions: Viruses can take 7-14 days to run their course. Nasal saline and bulb syringe or nose Jennifer to remove nasal drainage to help with nasal congestion. Hard to eat, drink, sleep with nasal congestion so important to keep this cleaned out. Monitor temp. Tylenol or Motrin as needed for pain or fever Encourage fluids, water, Gatorade, Powerade, Pedialyte if infant/toddler/child Warm salt water gargles Warm fluids Sore throat lozenges Sleep elevated Humidifier/vaporizer Follow-up immediately for new or worsening symptoms or no noticeable improvement over the next 48-72 hours. Clinical Impressions Clinical Impression: Influenza A Instructions Patient Instructions: DI for Influenza -- Adult Print Language Print Language: Amharic Discharge ED Provider: Monica ([facility] [place] General Stated complaint: fever body ache sore throat cough runny nose Mode of Arrival: Ambulatory Source of Information: Patient Time Seen by Provider: 11/10/24 15:05 Description of Symptoms (Recalled from Triage Doc. by RN): FEVER, CHILLS, ZAMORA HEENT Symptoms (Recalled from RN notes): Yes Resp Symptoms (Recalled from RN notes): Yes Skin Symptoms (Recalled from RN notes): No MS Symptoms (Recalled from RN notes): No Functional Status (Recalled from RN notes): WNL History of Present Illness Provider Complaint: 29-year-old male presents for complaints of fever, body aches, sore throat, runny nose, and cough since yesterday. Related Data Previous Rx's ?Medication ?Instructions ?Recorded lumateperone 42 mg capsule 42 mg PO DAILY #30 caps 08/15/24 (Caplyta) oseltamivir 75 mg capsule (Tamiflu) 75 mg PO BID 5 days #10 caps 11/10/24 Allergies Allergy/AdvReac Type Severity Reaction Status Date / Time No Known Allergies Allergy Verified 08/27/24 11:21 Worker's Comp Is this a Worker's Comp case?: No [facility] Disclaimer: The information contained in this section may have been updated after the patient was seen, as this information can be updated by other users. Medical History , RETAIL SERVICE SPECIALIST) Liver disease Depression Anxiety Hypertension Insomnia Recurrent major depression resistant to treatment Social History , RETAIL SERVICE SPECIALIST) Smoking Status: Current every day smoker tobacco type: e-cigarettes and smokeless tobacco alcohol intake: never substance use type: denies use current occupational status: employed Travel in the last 8 weeks: None household members: spouse and children housing: house number of children: 1 Have you lived/traveled outside US in past 30 days?: No Contact w/someone who lives/traveled outside US past 30 days?: No Exposure to someone with infectious disease in past 14 days?: No Do you have a fever (greater than 100.4 F or 38 C)?: Yes Have you tested positive for COVID-19: No Exposed to someone with COVID-19 in past 14 days?: No Do you have a sore throat?: Yes Do you have a cough?: Yes Do you have any weakness?: No Do you have any diarrhea?: No Are you experiencing any unusual bleeding?: No Do you have any muscle aches/pain?: Yes Do you have any abdominal pain?: No Are you experiencing loss of taste or smell?: No ROS Obtained: Yes Systems reviewed as appropriate & no additional complaints except as documented Physical Exam General General appearance: alert and in no apparent distress ENT ENT exam: Present normal exam, normal oropharynx, mucous membranes moist and TM's normal bilaterally Respiratory Respiratory exam: Present normal lung sounds bilaterally Cardiovascular Cardiovascular exam: Present regular rate and normal rhythm Neurological Exam Neurological exam: Present alert and oriented X3 Skin Skin exam: Present warm and intact Medical Decision Making Medical Records Screening: Per USPSTF and CDC recommendations, given the prevalence of disease in our region, it is our hospital?s policy to screen for HIV and viral Hepatitis for all patients aged 18 and over and those with ongoing risk factors. Ray Inquiry Pt receiving controlled substance: No Vital Signs: 11/10/24 14:57 Temperature 99.6 F Temperature Source Oral Pulse Rate [Left Radial] 139 H Respiratory Rate 18 Blood Pressure [Left Arm] 151/95 H Blood Pressure Mean [Left Arm] 113 02 Sat by Pulse Oximetry 95 Lab Data Lab results reviewed: Yes I reviewed the patient's lab results. Lab Results 11/10/24 14:58: Influenza Type A Ag Positive A, Influenza Type B Ag Negative
[2024-11-10 15:17] VITALS: BP 151/95; PULSE 139; RESP 18; TEMP 37.6
== END 2024-11-10 15:20 | disposition home or self-care (01) ==
PROVIDERS: Emergency Provider Nurse Practitioner Family; PCP Nurse Practitioner Family
DX: J10.1 Influenza due to other identified influenza virus with other respiratory manifestations (principal)
CPT/HCPCS: 87804; 99213; G0381

== ENCOUNTER 2025-03-21 12:09 | Emergency (ER) | payer BC, SELFPAY ==
[2025-03-21 12:17] VITALS: BP 170/104; PULSE 105; RESP 17; TEMP 36.7; O2SAT 97; BMI 50.1
--- NOTE | 2025-03-21 12:26 | XR_ITS ---
FINAL REPORT CLINICAL HISTORY: lateral ankle and foot swelling since last night. nki COMPARISON: 05/06/2022 FINDINGS: RIGHT FOOT Two views were obtained. There is no fracture or dislocation. The joint spaces appear normal. No soft tissue abnormality is identified. IMPRESSION: No acute process. Reviewed, Interpreted and Dictated by Marty Quiroz MD Transcribed by Neda Barrios Authenticated and . [facility]
--- NOTE | 2025-03-21 12:26 | XR_ITS ---
FINAL REPORT CLINICAL HISTORY: lateral ankle and foot swelling since last night. nki COMPARISON: 04/05/2023 FINDINGS: RIGHT ANKLE Three views were obtained. There is no fracture or dislocation. The joint spaces appear normal. There is moderate diffuse soft tissue edema. IMPRESSION: Moderate soft tissue edema. Reviewed, Interpreted and Dictated by Marty Quiroz MD Transcribed by Neda Barrios Authenticated and [facility]
--- NOTE | 2025-03-21 12:26 | XR_ITS ---
FINAL REPORT CLINICAL HISTORY: lateral ankle and foot swelling since last night. nki COMPARISON: 04/05/2023 FINDINGS: RIGHT TIBIAL FIBULA Two views were obtained. There is no fracture or dislocation. The joint spaces appear normal. No soft tissue abnormality is identified. IMPRESSION: No acute process. Reviewed, Interpreted and Dictated by Marty Quiroz MD Transcribed by Neda Barrios Authenticated and [facility]
--- NOTE | 2025-03-21 12:29 | HMH.EDGENADL ---
Discharge Plan Disposition Patient Disposition: Home, Self-Care Prescriptions Prescriptions: New naproxen 500 mg tablet 500 mg PO BID PRN (Reason: pain) 7 Days Qty: 14 0RF No Action Caplyta 42 mg capsule 42 mg PO DAILY Qty: 30 1RF oseltamivir [Tamiflu] 75 mg capsule 75 mg PO BID 5 Days Qty: 10 0RF Referrals Follow up/Referrals: Jovi Cerna DO [Staff Physician, Orthopedics] - See instructions Enma Lawton APRN [Primary Care Provider, Medical] - See instructions Activity Restrictions/Add. Instructions Additional Instructions/Restrictions: No obvious fracture or dislocation please follow-up with Dr. Cerna for evaluation for possible MRI and further evaluation management. You may bear weight as needed. Clinical Impressions Clinical Impression: Ankle pain, right Print Language Print Language: Ecuadorean Discharge ED Provider: Bijan Monaco General Adult HPI General Chief complaint: Extremity Injury, Lower Stated complaint: Pain/Swelling to R Ankle Time Seen by Provider: 03/21/25 12:21 Mode of Arrival: Ambulatory Source of Information: Patient Description of Symptoms (Recalled from ER Triage Doc. by RN): right ankle pain and swelling without injury for 2 weeks. History of Present Illness HPI narrative: Patient is a 29-year-old morbidly obese male presents today with right ankle and foot pain. This been ongoing for the last several weeks. 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 No definitive onset of injury that he is aware of. No fevers or chills no redness or warmth. Related Data Previous Rx's ?Medication ?Instructions ?Recorded lumateperone 42 mg capsule 42 mg PO DAILY #30 caps 08/15/24 (Caplyta) oseltamivir 75 mg capsule (Tamiflu) 75 mg PO BID 5 days #10 caps 11/10/24 naproxen 500 mg tablet 500 mg PO BID PRN pain 7 days #14 03/21/25 tabs Allergies Allergy/AdvReac Type Severity Reaction Status Date / Time No Known Allergies Allergy Verified 08/27/24 11:21 [facility] Disclaimer: The information contained in this section may have been updated after the patient was seen, as this information can be updated by other users. Medical History , PROCED TECH) Liver disease Depression Anxiety Hypertension Insomnia Recurrent major depression resistant to treatment Social History , PROCED TECH) Smoking Status: Never smoker alcohol intake: never substance use type: denies use current occupational status: employed Travel in the last 8 weeks?: None household members: spouse and children housing: house number of children: 1 Have you lived/traveled outside US in past 30 days?: No Contact w/someone who lives/traveled outside US past 30 days?: No Exposure to someone with infectious disease in past 14 days?: No Do you have a fever (greater than 100.4 F or 38 C)?: No Have you tested positive for COVID-19?: No Exposed to someone with COVID-19 in past 14 days?: No Do you have a sore throat?: No Do you have a cough?: No Do you have any weakness?: No Do you have any diarrhea?: No Are you experiencing any unusual bleeding?: No Do you have any muscle aches/pain?: No Do you have any abdominal pain?: No Are you experiencing loss of taste or smell?: No Other Medical History Have you received the Flu Vaccine for this season: No Have you received the Pneumonia Vaccine: No ROS Obtained: Yes All systems reviewed & no additional complaints except as documented Physical Exam General General appearance: alert and in no apparent distress Respiratory Respiratory exam: Present normal lung sounds bilaterally Cardiovascular Cardiovascular exam: Present regular rate Extremities Exam Extremities exam: Present other (Right distal tib-fib patient has significant pain and swelling over the posterior aspect along the Achilles tendon but Achilles tendon function is intact also has swelling and pain over the right lateral malleolus and midfoot) Neurological Exam Neurological exam: Present alert and oriented X3 Medical Decision Making Medical Records Screening: Per USPSTF and CDC recommendations, given the prevalence of disease in our region, it is our hospital?s policy to screen for HIV and viral Hepatitis for all patients aged 18 and over and those with ongoing risk factors. Ray Inquiry Pt receiving controlled substance: No Vital Signs: 03/21/25 12:17 03/21/25 13:08 Temperature 98.1 F Temperature Source Oral Pulse Rate 72 Pulse Rate [Left Radial] 105 H Respiratory Rate 17 16 Blood Pressure 157/83 H Blood Pressure [Right Arm] 170/104 H Blood Pressure Mean [Right Arm] 126 Blood Pressure Source [Right Arm] Automatic Cuff Blood Pressure Position Sitting Blood Pressure Position [Right Arm] Sitting 02 Sat by Pulse Oximetry 97 98 Oxygen Delivery Method Room Air Room Air Orders (Tests/Meds): ED MEDICATIONS Discontinued Medications Generic Name Dose Route Start Last Admin Trade Name Angeles PRN Reason Stop Dose Admin Ketorolac Tromethamine 30 mg 03/21/25 12:26 03/21/25 12:37 Ketorolac 30mg/Ml Vial IM 03/21/25 12:27 30 mg ONCE ONE Administration ORDERS Category Date Time Status Ankle XR -Right minimum 3 Views [XR ankle RT min 3V] Exams 03/21/25 12:26 Taken Stat Foot XR right 2 views [XR foot RT 2V] Stat Exams 03/21/25 12:26 Taken Tibia/fibula XR right 2 views [XR tibia fibula RT 2V] Exams 03/21/25 12:26 Taken Stat Medical Decision Narrative: Morbidly obese 29-year-old male presents today with nontraumatic pain of his right ankle and foot. Does have some pain and swelling over the distal Achilles tendon as well. Could be a tendinopathy or tendinitis or just significant arthritis associated with his chronic asymmetric weightbearing with his left clubfoot. Will get plain films rule out any fracture dislocation. Clinically are not concerned about an infection. Will likely have him follow-up with orthopedic surgery for further evaluation and management. Reassessment 1:14 PM x-rays of the patient's foot ankle tib-fib were performed I personally interpreted them no evidence of fracture or dislocation. Patient was able to ambulate but with significant difficulty will place him in a walking boot-bear weight as [id number] closely with Dr. Cerna. Return precautions also emphasized. Critical Care Critical Care Time Critical Care Time: No
[2025-03-21] MEDS: KETOROLAC 30MG/ML VIAL 30 MG IM (12:37)
--- OUTSIDE RECORDS SUMMARY | 2025-03-21 12:40 | XMS_ITS | Encounter Summary ---
Author Organization [facility] [employer] Address [address] [place] [address] Care Team Providers Care Sheet Pile Driver Operator Name Role Phone Records, Provider Preferred Misti - Primary Care P rovider Encounter Details Date Type Department Care Team (Late st Contact Info) Description 02/16/2024 Outside Orders [facility] Central Scheduling [address] [place] [address] Nurys Joiner, OUTREACH REP [address] [id number] Insomnia, unspecified type (Primary Dx) Social History Tobacco Use Types Packs/Day Years Used Date Smoking Tobacco: Never Assessed Interpersonal Safety Answer Date Record ed Family or friends hurt you Not on file 02/15 Family or friends insult you Not on file Family or friends threaten you Not on file 0 02/16/2024 Family or friends scream or curse at you Not on file 02/16/2024 Food Insecurity Answer Date Recorded Food run out past 12 months Not on file 01/31 Food did not last past 12 months Not on file 02/16/2024 Employment Answer Date Recorded Help finding and keeping a job Not on file 0 02/16/2024 Family and Community Support Answer Subhash e Recorded Help with Day to Day Activities Not on file 02/16/2024 Feeling Lonely or Isolated Not on file 02/15 Educational Attainment Answer Date Carloz rded Speak language other than Slovenian at home Not on file 02/16/2024 Want help with school or training Not on file 02/16/2024 Depression Answer Date Recorded PHQ-2 Risk Not on file 02/16/2024 Disabilities Answer Date Recorded Difficulty concentrating Not on file 024 Difficulty doing errands alone Not on file 0 02/16/2024 Substance Use Answer Date Recorded Used prescription meds for non-medical reasons N ot on file 02/16/2024 Used illegal drugs past 12 months Not on file 02/16/2024 Sex and Gender Information Value Date Recorded Sex Assigned at Not on file Legal Sex Male 11:54 AM CDT Gender Identity Not on file Sexual Orientation Not on file documented as of this encounter Plan of Treatment Not on file documented as of this encounter Visit Diagnoses Diagnosis Insomnia, unspecified type- Primary documented in this encounter Care Teams Sheet Pile Driver Operator Relationship Specialty Start Date End Date Records, Provider Preferred Misti - [address] [place], [place] [id number] PCP - General 10/29/24 documented as of this encounter
--- OUTSIDE RECORDS SUMMARY | 2025-03-21 12:40 | XMS_ITS | Clinical Summary ---
Author Organization [facility] [employer] Address [address] [place] [address] Care Team Providers Care Washer Machine Name Role Phone Records, Provider Preferred Misti - Primary Care P rovider Social History Tobacco Use Types Packs/Day Years [...] Date Carloz rded Speak language other than Solomon Islander at home Not on file 02/16/2024 Want [...] on file Sexual Orientation Not on file Plan of Treatment Health Maintenance Due Date Last Done Comments Tobacco Cessation Counseling and Screening (12+) 2006 HIV Screening 2009 Hepatitis C Screening 2012 COVID-19 VACCINE (1 - 2023-2 5 season) 2024 Influenza Vaccine (Season Ended) 2025 07/13/20 07 DTAP/TDAP/TD VACCINES (2 - T d or Tdap) 04/06/2028 04/06/2018 Pneumococcal Vaccine: 0-49 Years Aged Out No longer eligible based on patient's age to complete this topic Insurance BLUE CROSS/BLUE SHIELD Care Teams Washer Machine Relationship Specialty Start Date End Date Records, Provider Preferred Misti - [address] [place] [address] PCP - General 10/29/24
--- OUTSIDE RECORDS SUMMARY | 2025-03-21 12:40 | XMS_ITS | Referral Summary ---
Author Organization [facility] [employer] Address [address] [place] [address] Care Team Providers Care Hotel Sales Manager Name Role Phone Records, Provider Preferred Misti [...] Date Carloz rded Speak language other than Sao Tomean at home Not on file 02/16/2024 Want [...] Orientation Not on file Plan of Treatment Not on file Insurance BLUE CROSS/BLUE SHIELD Care Teams Hotel Sales Manager Relationship Specialty Start Date End Date Records, Provider Preferred Misti - [address] [place], [place] [id number] PCP - General 10/29/24
[2025-03-21 13:08] VITALS: BP 157/83; PULSE 72; RESP 16; O2SAT 98
--- NOTE | 2025-03-21 13:11 | PC.NURSE ---
rounded on pt, pt voiced he did not need anything at this time
[2025-03-21 13:30] VITALS: BP 157/83; PULSE 84; RESP 20; TEMP 36.8; O2SAT 98
== END 2025-03-21 13:31 | disposition home or self-care (01) ==
PROVIDERS: Emergency Provider Student in an Organized Health Care Education/Training Program; PCP Nurse Practitioner Family
DX: M25.571 Pain in right ankle and joints of right foot (principal)
CPT/HCPCS: 73590; 73610; 73620; 96372; 99284; J1885

== ENCOUNTER 2025-04-01 06:47 | Outpatient (CLI) | payer BC, SELFPAY ==
--- OUTSIDE RECORDS SUMMARY | 2025-04-01 06:49 | XMS_ITS | Encounter Summary ---
Author Organization [employer] Address [address] [place] [address] Care Team Providers Care Electronics Recycler Name Role Phone Records, Provider Preferred Misti - Primary Care P rovider Encounter Details Date Type Department Care Team (Late st Contact Info) Description 02/16/[address] [facility] Central Scheduling [address] [place] [address] Nurys Joiner, ROSE GROWER [address] [phone] Insomnia, unspecified type (Primary Dx) Social History Tobacco Use Types Packs/Day Years Used Date Smoking Tobacco: Never Assessed Food Insecurity Answer Date Recorded Food run [...] Date Carloz rded Speak language other than Romansh at home Not on file 02/16/2024 Want help with school or training Not on file 02/16/2024 Substance Use Answer Date Recorded Used [...] Primary documented in this encounter Care Teams Electronics Recycler Relationship Specialty Start Date End Date Records, Provider Preferred Misti - [address] [place] [id number] PCP - General 10/29/24 documented as of this encounter
--- OUTSIDE RECORDS SUMMARY | 2025-04-01 06:49 | XMS_ITS | Referral Summary ---
Author Organization [facility] [employer] Address [address] [place] [address] Care Team Providers Care Electrician Research Name Role Phone Records, Provider Preferred Misti [...] Date Carloz rded Speak language other than Hong Konger at home Not on file 02/16/2024 Want [...] file Insurance BLUE CROSS/BLUE SHIELD Care Teams Electrician Research Relationship Specialty Start Date End Date Records, Provider Preferred Misti - [address] [place], [place] [phone] PCP - General 10/29/24
--- OUTSIDE RECORDS SUMMARY | 2025-04-01 06:49 | XMS_ITS | Clinical Summary ---
Author Organization [facility] [employer] Address [address] [place] [address] Care Team Providers Care Grocery Deliverer Name Role Phone Records, Provider Preferred Misti [...] Date Carloz rded Speak language other than Syrian at home Not on file 02/16/2024 Want [...] 2009 Hepatitis C Screening 2012 COVID-19 VACCINE (2023-2 5 season) 2024 Influenza Vaccine (Season Ended) 2025 07/13/20 07 DTAP/TDAP/TD VACCINES (2 - T d or Tdap) 04/06/2028 04/06/2018 Pneumococcal Vaccine: 0-49 Years Aged Out No longer eligible based on patient's age to complete this topic Insurance BLUE CROSS/BLUE SHIELD Care Teams Grocery Deliverer Relationship Specialty Start Date End Date Records, Provider Preferred Misti - [address] [place] [address] PCP - General 10/29/24
--- NOTE | 2025-04-01 07:30 | US_ITS ---
FINAL REPORT CLINICAL HISTORY: LUQ mass-- soft tissue abd-- palp area luq COMPARISON: None FINDINGS: Limited sonographic images were obtained of the soft tissues in the left upper quadrant at the area of reported palpable abnormality. There is a 5.1 x 4.4 x 3.0 cm hypoechoic subcutaneous lesion likely representing a lipoma. IMPRESSION: Probable lipoma at area of palpable abnormality. Reviewed, Interpreted and Dictated by Marty Quiroz MD Transcribed by Josefina Pearson Authenticated and [facility]
== END 2025-04-01 23:59 | disposition home or self-care (01) ==
PROVIDERS: PCP Nurse Practitioner Family; Visit Provider Nurse Practitioner Family
DX: R19.02 Left upper quadrant abdominal swelling, mass and lump (principal)
CPT/HCPCS: 76705

== ENCOUNTER 2025-04-15 13:50 | Outpatient (CLI) | payer BC, SELFPAY ==
[2025-04-15 16:59] LABS: Microscopic, Urine URINE MICROSCOPIC (MICROSCOPIC)
[2025-04-15 17:24] LABS: Hematocrit 46.1 % (42.0-52.0); Hemoglobin 15.1 g/dL (14.1-18.0); Immature Granulocytes % 1.1 %; Mean Corpuscular HGB Conc 32.8 g/dL (31.8-35.4); Mean Corpuscular Hemoglobin 27.0 pg (27.0-31.2); Mean Corpuscular Volume 82.3 fl (80-94); Nucleated Red Blood Cells % 0 %; Platelet Count 239 K/mm3 (142-424); Red Blood Count 5.60 M/mm3 (4.60-6.20); Red Cell Distribution Width-SD 40.2 fL; White Blood Count 10.3 K/mm3 (4.8-10.8)
[2025-04-15 17:55] LABS: Bilirubin,Urine Negative (Negative); Color,Urine YELLOW (Yellow); Glucose,Urine (UA) Negative (Negative); Ketones,Urine Negative (Negative); Leukocyte Esterase,Urine Negative (Negative); PH,Urine 6.0 (5.0-8.5); Protein,Urine Negative (Negative); Specific Gravity, Urine 1.025 (1.005-1.030); Urobilinogen,Urine 0.2 EU/dl (0.2)
[2025-04-15 18:32] LABS: Alanine Aminotransferase 41 U/L (12-78); Albumin Level 4.4 g/dl (3.5-5.0); Albumin/Globulin Ratio 1.7 (1.1-1.8); Alkaline Phosphatase 42 U/L (38-126); Anion Gap 19.4 mEq/L (5-15); Aspartate Amino Transferase 26 U/L (17-59); Bilirubin,Total 0.6 mg/dl (0.2-1.3); Blood Urea Nitrogen 14 mg/dl (9-20); Calcium 9.3 mg/dl (8.4-10.2); Carbon Dioxide 24 mmol/L (22.0-30.0); Chloride 100 mmol/L (98-107); Cholesterol 162 mg/dl (140-200); Creatinine,Serum 0.60 mg/dl (0.66-1.25); Estimated Glomerular Filt Rate 158 ml/min (>60); GFR (African American) 191 ML/MIN (>60); Globulin 2.6 g/dL (1.3-3.2); Glucose 96 mg/dl (74-100); HDL Cholesterol 33 mg/dl (40-60); Potassium 4.4 mmoL/L (3.5-5.1); Sodium 139 mmol/L (136-145); Total Protein,Serum 7.0 g/dl (6.3-8.2); Triglycerides 197 mg/dl (30-150); Uric Acid 9.0 mg/dl (3.5-8.5)
[2025-04-15 18:48] LABS: Free T4 (Free Thyroxine) 1.12 ng/dl (0.78-2.19)
[2025-04-15 18:51] LABS: 25-OH Vitamin D, Total 14.4 ng/mL (30-100)
[2025-04-15 19:03] LABS: Thyroid Stimulating Hormone 2.07 uIU/mL (0.465-4.68)
[2025-04-15 19:22] LABS: Hepatitis C Ab Qual. W/ RFX NEGATIVE (Negative); Vitamin B12 640 pg/mL (239-931)
[2025-04-15 22:21] LABS: Hemoglobin A1C 5.9 % (4.0-6.0)
[2025-04-15 22:26] LABS: Bacteria,Urine 1+ /lpf; Squamous Epithelial Cell,Urine Occasional #/hpf (0-5); WBC,Urine Occasional #/hpf (0-3)
--- OUTSIDE RECORDS SUMMARY | 2025-04-16 12:39 | XMS_ITS | Clinical Summary ---
Author Organization [employer] ([place], [place], [place], [place]) Address [address] [place] [address] Care Team Providers Care Community Reinvestment Act Officer Name Role Phone Records, Provider Preferred Misti - Primary Care P shakirfranklinder Social History Tobacco Use Types Packs/Day Years [...] Date Carloz rded Speak language other than Ivorian at home Not on file 02/16/2024 Want [...] VACCINE (2023-2 5 season) 2024 Influenza Vaccine (#1) 2025 07/13/2007 DTAP/TDAP/TD VACCINES (2 - T d or Tdap) 04/06/2028 04/06/2018 Pneumococcal Vaccine: 0-49 Years Aged Out No longer eligible based on patient's age to complete this topic Insurance BLUE CROSS/BLUE SHIELD Care Teams Community Reinvestment Act Officer Relationship Specialty Start Date End Date Records, Provider Preferred Misti - [address] [place] [address] PCP - General 10/29/24
--- OUTSIDE RECORDS SUMMARY | 2025-04-16 12:39 | XMS_ITS | Referral Summary ---
Author Organization [employer] ([place], [place], [place], [place]) Address [address] [place] [address] Care Team Providers Care Mixed Livestock Farm Worker Name Role Phone Records, Provider Preferred Misti - Primary Care P jasielder Social History Tobacco Use Types Packs/Day Years [...] Date Carloz rded Speak language other than Maltese at home Not on file 02/16/2024 Want [...] file Insurance BLUE CROSS/BLUE SHIELD Care Teams Mixed Livestock Farm Worker Relationship Specialty Start Date End Date Records, Provider Preferred Misti - [address] [place] [phone] PCP - General 10/29/24
--- OUTSIDE RECORDS SUMMARY | 2025-04-16 12:39 | XMS_ITS | Encounter Summary ---
Author Organization [employer] ([place], [place], [place], [place]) Address [address] [place] [address] Care Team Providers Care Dyer Assistant Name Role Phone Records, Provider Preferred Misti - Primary Care P shakirfranklinder Encounter Details Date Type Department Care Team (Late st Contact Info) Description 02/16/[address] [facility] Central Scheduling [address] [place] [address] Nurys Joiner, ARNALDO [address] [place], [place] [phone] Insomnia, unspecified type (Primary Dx) Social History [...] Date Carloz rded Speak language other than Liberian at home Not on file 02/16/2024 Want [...] Primary documented in this encounter Care Teams Dyer Assistant Relationship Specialty Start Date End Date Records, Provider Preferred Misti - [address] [place] [address] PCP - General 10/29/24 documented as of this encounter
== END 2025-04-15 23:59 | disposition home or self-care (01) ==
LOC: LAB.DROPOF 04-16 12:37
PROVIDERS: PCP Nurse Practitioner Family; Visit Provider Nurse Practitioner Family
DX: G47.33 Obstructive sleep apnea (adult) (pediatric) (principal); Z68.42 Body mass index [BMI] 45.0-49.9, adult; I10 Essential (primary) hypertension; G47.00 Insomnia, unspecified; Z11.59 Encounter for screening for other viral diseases; Z11.4 Encounter for screening for human immunodeficiency virus [HIV]; R53.83 Other fatigue; E53.8 Deficiency of other specified B group vitamins; E55.9 Vitamin D deficiency, unspecified; Z13.220 Encounter for screening for lipoid disorders; M10.9 Gout, unspecified; R41.3 Other amnesia; E11.9 Type 2 diabetes mellitus without complications
CPT/HCPCS: 80053; 80061; 80074; 81001; 82306; 82607; 83036; 84156; 84439; 84443; 84550; 85025; 87086; 87389